=== PATIENT | male | born 1945 | race Hispanic/Latino ===

== ENCOUNTER → 2024-04-08 | Outpatient (CLI) | payer OTHER ==
[2024-04-08 08:37] LABS: ADD UA MICROSCOPIC YES; APPEARANCE,URINE CLOUDY (CLEAR); BILIRUBIN,URINE NEGATIVE (NEGATIVE); COLOR,URINE YELLOW (YELLOW); GLUCOSE, URINE (UA) >=1000 mg/dL (NEGATIVE); KETONES,URINE NEGATIVE (NEGATIVE); LEUKOCYTE ESTERASE ,URINE 500 Leu/uL (NEGATIVE); NITRATE,URINE NEGATIVE (NEGATIVE); PH,URINE 5.5 (5.0-8.0); PROTEIN,URINE 30 mg/dL (NEGATIVE); UROBILINOGEN,URINE 0.2 mg/dL (0.2-1.0)
[2024-04-08 08:42] LABS: BACTERIA,URINE MOD /HPF (None Seen); MUCUS,URINE RARE LPF (None Seen); SQUAMOUS EPITHELIAL CELL,UR RARE /HPF (0-2); UNCLASSIFIED CRYSTAL 2 /HPF (None Seen); WBC CLUMP FEW /HPF (0-1); WBC,URINE TNTC /HPF (0-1)
[2024-04-08 08:46] LABS: ALBUMIN 3.5 g/dL (3.5-5.0); BILIRUBIN,TOTAL 0.4 mg/dL (0.2-1.0); CREATININE 1.3 mg/dL (0.5-1.3); POTASSIUM 4.6 mmol/L (3.5-5.1); TOTAL PROTEIN, SERUM 7.3 g/dL (6.0-8.3)
== END | disposition home or self-care (01) ==
LOC: LAB 07:51
PROVIDERS: ATTEND Chiropractor
DX: N18.9 Chronic kidney disease, unspecified (principal)
CPT/HCPCS: 36415; 80053; 81001; 87077; 87086; 87088; 87186

== ENCOUNTER 2025-06-17 15:27 | Inpatient (IN) | payer OTHER ==
[~2025-06-17] VITALS: Ht 177.8 cm; Wt 94.5 kg
--- NOTE | 2025-06-17 15:42 | EKG ---
[facility] Test Date: 2025-06-17 Test Time: 15:37:13 Pat Name: SHELBY MONTES Department: ED Room: 218 Gender: M [employer] Hat[employer] Worker: [id number] : 1945 Requested By: JERRY ADAME Order Number: [id number] Reading MD: Zoë Oneal Measurements Intervals [place] Rate: 65 P: 5 DE: 140 QRS: 23 QRSD: 85 T: 58 QT: 391 QTc: 407 Interpretive Statements Sinus rhythm Low voltage, precordial leads No previous ECG available for comparison Electronically Signed On 06-18-2025 08:34:45 CDT by Zoë Oneal Please click the below link to view image of tracing.
[2025-06-17 15:50] LABS: IMMATURE GRANULOCYTE ABSOLUTE 0.02 K/uL (0-1); NUCLEATED RED BLOOD CELLS 0.0 % (0.0-0.19); PLATELET COUNT (AUTO) 243 K/uL (130-400); RED BLOOD CELL COUNT(AUTO) 5.14 MIL/uL (4.50-6.20); RED CELL DISTRIBUTION WIDTH 15.3 % (11.0-15.5); WHITE BLOOD COUNT (AUTO) 9.7 K/uL (4.8-10.8)
[2025-06-17 15:59] LABS: CREATININE 1.4 mg/dL (0.5-1.3); GLOMERULAR FILTR. RATE CALC 51.0 mL/min (>90); GLUCOSE,RANDOM 142.0 mg/dL (70-105); SODIUM SERUM 136.0 mmol/L (136-145); UREA NITROGEN, BLOOD 24.0 mg/dL (7-18)
[2025-06-17 16:01] LABS: INR 1.09 (0.85-1.15)
[2025-06-17 16:09] LABS: CREATINE KINASE, TOTAL 128.0 U/L (21-232); LDL DIRECT 59.0 mg/dL (0-99)
--- NOTE | 2025-06-17 17:00 | HMCIMG ---
EXAM: CT Head Without Intravenous Contrast. CLINICAL HISTORY: 79-year-old male with right eye peripheral vision decreased. TECHNIQUE: Axial computed tomography images of the head/brain without intravenous contrast. Dose reduction technique was used including one or more of the following: automated exposure control, adjustment of mA and kV according to patient size, and/or iterative reconstruction. CONTRAST: NONE COMPARISON: None. FINDINGS: BRAIN: Moderate atrophy. Moderate chronic ischemic changes. There is increased density in the left occipital lobe, image number 15 of 31, with some surrounding low density, possibly representing a hemorrhagic infarct, and subarachnoid hemorrhage cannot be excluded within this area. VENTRICLES: No hydrocephalus. ORBITS: The orbits are unremarkable. SINUSES AND MASTOIDS: The paranasal sinuses and mastoid air cells are clear. SOFT TISSUES: No significant facial or scalp soft tissue swelling evident. No radiopaque foreign body is seen. BONES: No acute skull fracture. IMPRESSION: 1. Possible hemorrhagic infarct in the left occipital lobe with surrounding low density. Subarachnoid hemorrhage cannot be excluded within this area. 2. Moderate atrophy and moderate chronic ischemic changes. /[place]
--- NOTE | 2025-06-17 17:08 | ERN ---
General Chief Complaint: Stroke Symptoms Stated Complaint: STROKE LIKE SYMPTOMS Time Seen by MD: 15:29 Source: patient History of Present Illness Initial Comments Patient is a an 79-year-old male coming in complaining of right eye issues. Per patient he was seen by his PCP sent over for further evaluation. Patient states that a couple of days ago he started noticing decreased vision loss for in the right lateral field. Allergies: Coded Allergies: No Known Drug Allergies (Unverified Allergy, Unknown, 06/17/25) Past Medical History Past Medical History: Diabetes-Type II, High Cholesterol, Hypertension, Other Medical History Other: BPH, NEUROPATHY, CKD NOT ON DIALYSIS Past Surgical History: Other Surgical History Other: CATARACS, HERNIA ROS Dictation CONSTITUTIONAL: No chills, no fever, no weakness, no diaphoresis, no malaise. HEAD/FACE: No signs of trauma. EENT: No eye pain, blurred vision, no tearing, no double vision, no ear pain, no ear discharge, no nose pain, no nasal congestion, no throat pain, no throat swelling, no mouth pain. RESPIRATORY: No cough, no orthopnea, no SOB, no stridor, no wheezing. CARDIOVASCULAR: No chest pain, no edema, no palpitations, no syncope. GASTROINTESTINAL/ABDOMINAL: No abdominal pain, no constipation, no diarrhea, no nausea, no vomiting. GENITOURINARY: No abnormal discharge, no dysuria, no frequent urination, no hematuria. No complaints of pain in the genitals. MUSCULOSKELETAL: No back pain, no gout, no joint pain, no joint swelling, no muscle pain, no muscle stiffness, no neck pain. INTEGUMENTARY: No change in color, no change in hair/nails, no dryness, no lesion, no lumps, no rash. NEUROLOGICAL/PSYCH: No anxiety, not depressed, no emotional problem, no headache, no numbness, no pre-existing deficit, no history of seizures, no tremors, no weakness. HEMATOLOGIC/LYMPHATIC: Not anemic, no history of blood clots, no apparent bleeding, no bruising, glands not swollen. All Systems Negative, Except as Noted. Physical Exam Physical Exam Dictation VITAL SIGNS: Reviewed. GENERAL APPEARANCE: Alert, oriented x3, no acute distress, obese. HEAD AND FACE: Non-traumatic. EYES: PERRL, pink conjunctivas, eyelid no trauma, anterior chamber clear. R ight eye peripheral vision loss EARS: Pinnas intact and no signs of trauma or erythema. Ear canals clear and no discharge. TMs no erythema. NOSE: No discharge, no bleeding. OROPHARYNX: Mouth normal, teeth no caries, tongue pink. Pharynx clear, no er ythema. Tonsils no exudates, no abscesses noted. Mucous membrane moist. NECK: Supple, non-tender, no thyromegaly, no masses, no JVD, no bruits. BREAST: Deferred. CHEST: No tenderness, no crepitus, no paradoxical movement, no retractions. LUNGS: Clear, well-ventilated, symmetric, no rales, no wheezing, no rhonchi, no stridor, good breath sounds bilaterally. HEART: Regular rate, regular rhythm, no murmur, no gallops. VASCULAR: No peripheral edema. ABDOMEN: Soft, positive bowel sounds, nondistended, no guarding, nontender, no rebound, no masses no hepatomegaly, no splenomegaly, no Ford's sign, no hernias. RECTAL: Deferred. GENITAL: Deferred. NEUROLOGICAL: Normal speech, gross motor function intact, gross sensory function intact. MUSCULOSKELETAL: Neck nontender, full range of motion, back nontender, full range of motion. EXTREMITIES: Nontender, full range of motion. SKIN: Color pink, dry, no turgor, no rash, no lacerations, no abrasions, no contusions. LYMPHATICS: Deferred. Results Laboratory and Microbiology Lab and Micro Result Laboratory Tests Test 06/17/25 15:40 White Blood Count 9.7 K/uL (4.8-10.8) Red Blood Count 5.14 MIL/uL (4.50-6.20) Hemoglobin 14.8 g/dL (14.0-18.0) Hematocrit 46.2 % (42-54) Mean Corpuscular Volume 89.9 fL (79-99) Mean Corpuscular Hemoglobin 28.8 pg (27.0-33.0) Mean Corpuscular Hemoglobin Concent 32.0 g/dL (32.0-36.0) Red Cell Distribution Width 15.3 % (11.0-15.5) Platelet Count 243 K/uL (130-400) Mean Platelet Volume 9.5 fL (7.5-10.5) Immature Granulocyte % (Auto) 0.2 % (0-1) Neutrophils (%) (Auto) 68.3 % (40.0-77.0) Lymphocytes (%) (Auto) 19.2 % (21.0-51.0) L Monocytes (%) (Auto) 7.5 % (3.0-13.0) Eosinophils (%) (Auto) 3.8 % (0.0-8.0) Basophils (%) (Auto) 1.0 % (0.0-5.0) Neutrophils # (Auto) 6.6 K/uL (1.8-7.7) Lymphocytes # (Auto) 1.9 K/uL (1.0-4.8) Monocytes # (Auto) 0.7 K/uL (0.1-1.0) Eosinophils # (Auto) 0.37 K/uL (0.00-0.70) Basophils # (Auto) 0.10 K/uL (0.00-0.20) Absolute Immature Granulocyte (auto 0.02 K/uL (0-1) Nucleated Red Blood Cells 0.0 % (0.0-0.19) Prothrombin Time 11.5 SEC (9.6-11.6) Prothromb Time International Ratio 1.09 (0.85-1.15) Activated Partial Thromboplast Time 30.5 SEC (26.3-35.5) Sodium Level 136 mmol/L (136-145) Potassium Level 4.6 mmol/L (3.5-5.1) Chloride Level 102 mmol/L (101-111) Carbon Dioxide Level 28 mmol/L (21-32) Blood Urea Nitrogen 24 mg/dL (7-18) H Creatinine 1.4 mg/dL (0.5-1.3) H Glomerular Filtration Rate Calc 51 mL/min (>90) Random Glucose 142 mg/dL (70-105) H Total Calcium 9.2 mg/dL (8.5-10.1) Total Creatine Kinase 128 U/L (21-232) Troponin I High Sensitivity 26 ng/L (4-75) LDL Cholesterol 59 mg/dL (0-99) Labs Reviewed?: Yes EKG/XRAY/US/CT/MRI EKG Comment 06/17/2025 time 3:37 p.m. Ventricular rate 65 Sinus rhythm [place] 140 no wave elevation or depression CT Scan Comment [facility] [address] [place] [address] IMAGING REPORT Signed PATIENT: SHELBY MONTES MR#: [id number] : 1945 SEX: M AGE: 79 LOCATION: [facility] ORDER 153 STATUS: [facility] ER REPORT#: [id number] SERVICE 153 REASON: right eye peripheral vision decreased ORDERING PHYSICIAN: JERRY ADAME MD PROCEDURE: HEAD WO - CT HEAD/BRAIN W/O CONTRAST EXAM: CT Head Without Intravenous Contrast. CLINICAL HISTORY: 79-year-old male with right eye peripheral vision decreased. TECHNIQUE: Axial computed tomography images of the head/brain without intravenous contrast. Dose reduction technique was used including one or more of the following: automated exposure control, adjustment of mA and kV according to patient size, and/or iterative reconstruction. CONTRAST: NONE COMPARISON: None. FINDINGS: BRAIN: Moderate atrophy. Moderate chronic ischemic changes. There is increased density in the left occipital lobe, image number 15 of 31, with some surrounding low density, possibly representing a hemorrhagic infarct, and subarachnoid hemorrhage cannot be excluded within this area. VENTRICLES: No hydrocephalus. ORBITS: The orbits are unremarkable. SINUSES AND MASTOIDS: The paranasal sinuses and mastoid air cells are clear. SOFT TISSUES: No significant facial or scalp soft tissue swelling evident. No radiopaque foreign body is seen. BONES: No acute skull fracture. IMPRESSION: 1. Possible hemorrhagic infarct in the left occipital lobe with surrounding low density. Subarachnoid hemorrhage cannot be excluded within this area. 2. Moderate atrophy and moderate chronic ischemic changes. /[place] DICTATED BY: CARMENCITA SOSA MD DATE: 06/17/251799 ELECTRONICALLY SIGNED BY: CARMENCITA SOSA MD DATE: 06/17/251799 [facility] MDM: Differential diagnosis: Hemorrhagic stroke, subarachnoid hemorrhage Rationale: Tests considered and ordered secondary to shared decision making include: labs, ECG and radiology Previous outside records reviewed: Old ER visits. Risk of complication and/or morbidity or mortality of patient management: None Medications-Per medication reconciliation Need for hospitalization: Patient does meet criteria for hospitalization. Need for emergency major/minor surgery: No There are no social concerns with this patient. Prescription drug management Prescriptions will include symptomatic care Patient's prior external medical records from other ER visits were reviewed by me as indicated. Prior testing and results from previous visits were reviewed. Prior tests were taken into account with medical decision making and resource utilization, independent historian/historians were used to obtain complete medical history. I independently interpreted the test that were performed, results were reviewed by me and considered findings on radiology if ordered. Medical management and examination interpretation discussions were had by me with other qualified healthcare professionals as indicated for the patient's care. Patient's findings discussed with Dr. Ahuja neurosurgeon on-call per his recommendation patient is stable from neurosurgical standpoint, patient will be admitted under the care of hospitalist group for ongoing management. ED Course Orders Procedure Category Date Status Time Cbc With Differential LAB 06/17/25 Complete 15:33 Prothrombin Time With LAB 06/17/25 Complete INR 15:33 Partial LAB 06/17/25 Complete Thromboplastin Time 15:33 Ct Head/Brain W/O CT 06/17/25 Resulted Contrast 15:33 12 Lead Ekg Tracing- EKG 06/17/25 Complete Technical 15:33 Creatine Kinase, Total LAB 06/17/25 Complete 15:33 Ldl Direct LAB 06/17/25 Complete 15:33 Troponin I High LAB 06/17/25 Complete Sensitivity 15:33 Urinalysis Profile LAB 06/17/25 Logged 15:33 Bedside Glucose CPOE 06/17/25 Transmitted Fingerstick 15:33 Basic Metabolic Panel LAB 06/17/25 Complete 15:33 Vital Signs Date Time Temp Pulse Resp B/P (MAP) Pulse Ox O2 Delivery O2 Flow Rate FiO2 06/17/25 15:30 98.1 73 16 142/64 99 Room Air 0 Critical Care Note Comments Critical Care Procedure Note Authorized and Performed by: me Total critical care time: Approximately 36 minutes Due to a high probability of clinically significant, life threatening deter ioration, the patient required my highest level of preparedness to intervene emergently and I personally spent this critical care time directly and personally managing the patient. This critical care time included obtaining a history; examining the patient; pulse oximetry; ordering and review of studies; arranging urgent treatment with development of a management plan; evaluation of patient's response to treatment; frequent reassessment; and, discussions with other providers. This critical care time was performed to assess and manage the high probability of imminent, life-threatening deterioration that could result in multi-organ fa ilure. It was exclusive of separately billable procedures and treating other patients and teaching time. Please see MDM section and the rest of the note for further information on patient assessment and treatment. 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
--- NOTE | 2025-06-17 17:45 | NUR ---
PLACED 20G ON LEFT ANTECUBITAL; SALINE LOCK.
--- NOTE | 2025-06-17 17:45 | NUR ---
ASSUMED PATIENTS CARE.
--- NOTE | 2025-06-17 18:00 | NUR ---
NIH SCORE 1.
--- NOTE | 2025-06-17 18:24 | HP ---
History of Present Illness Reason for Visit: visual changes History of Present Illness Mr. Taveras is an 79 year old male that was seen and examined today on 06/17/25. Patient complains of vision loss to right eye. Onset was 06/12/2025. Location is right eye peripheral vision. Duration is constant. Character is described as, "everybody looks like a ghost on that side of my. "There was no alleviating factors. There was no aggravating factors. Patient denies any associated chest pain or shortness and breath. Today in the emergency department CBC unremarkable, creatinine 1.4, BUN 24, CT of head shows possible hemorrhagic infarct left occipital area. Emergency room physician spoke with the neurosurgeon on-call, Dr. Brooks recommended patient be admitted to the hospital and also followed by Neurology Service. Past Medical History ADDITIONAL PAST MEDICAL HISTORY: [Diabetes mellitius type2, hypertension, hyperlipidemia, CKD] SOCIAL HISTORY: [Negative for smoking, alcohol use, drug use. Patient lives with hisel ,via jason. Patient is typically independent of his ADLs. Patient denies difficulty pain is bills.] SURGICAL HISTORY: [Cataract surgery, hernia repair, appendectomy] Review of Systems General: No Fever, No Chills, No Night Sweats, No Fatigue, No Malaise, No Appetite, No Other HEENT: No Head Aches, No Visual Changes, No Eye Pain, No Ear Pain, No Dysphasia, No Sinus Congestion, No Post Nasal Drip, No Sore Throat, No Other Pulmonary: No Dyspnea, No Cough, No Pleuritic Chest Pain, No Other Cardiovascular: No: Chest Pain, Palpitations, Orthopnea, Paroxysmal Noc. Dyspnea, Edema, Lt Headedness, Other Gastrointestinal: No: Nausea, Vomiting, Abdominal Pain, Diarrhea, Constipation, Melena, Hematochezia, Other Genitourinary: No Dysuria, No Frequency, No Incontinence, No Hematuria, No Retention, No Other Musculoskeletal: No: other, neck pain, shoulder pain, arm pain, back pain, hand pain, leg pain, foot pain Skin: No Urticaria, No Rash, No Other Neurological: Other (Visual disturbances); No: Weakness, Numbness, Incoordination, Change in speech, Confusion, Seizures Allergies: Coded Allergies: No Known Drug Allergies (Unverified Allergy, Unknown, 06/17/25) Scheduled Amlodipine Besylate (Amlodipine Besylate), 1 TAB PO DAILY, (Reported) Aspirin (Aspirin), 1 TAB PO DAILY, (Reported) Empagliflozin (Jardiance), 1 TAB PO DAILY, (Reported) Finerenone (Kerendia), 1 TAB PO DAILY, (Reported) Glipizide (Glipizide), 1 TAB PO BID, (Reported) Lisinopril (Lisinopril), 1 TAB PO DAILY, (Reported) Rosuvastatin Calcium (Rosuvastatin Calcium), 1 TAB PO HS, (Reported) Semaglutide (Ozempic), 1 MG SQ QWEEK, (Reported) Tamsulosin HCl (Flomax), 0.4 MG PO HS, (Reported) Exam Vital Signs Vital Signs Date Time Temp Pulse Resp B/P (MAP) Pulse Ox O2 Delivery O2 Flow Rate FiO2 06/17/25 15:30 98.1 73 16 142/64 99 Room Air 0 General Appearance: Alert, Oriented X3, Cooperative, No acute distress HEENT: Atraumatic, EOMI Respiratory: Clear to auscultation, Normal air movement, NL respiratory effort Cardiovascular: Regular rate, Regular rhythm, Normal S1, Normal S2 Abdominal: Normal bowel sounds, Soft, No tenderness Extremities: No edema Skin: No significant lesion Neuro: Normal gait, Normal speech, Strength at 5/5 X4 ext, Sensation intact, Cranial nerves 3-12 NL Psych/Mental Status: Mental status NL, Mood NL, Thoughts/Content NL Assessment/Plan ASSESSMENT: [ Left occipital hemorrhagic infarct, POA CKD stage IIIA, POA Urinary tract infection, POA Diabetes mellitius type2 Hypertension Hyperlipidemia] PLAN: [ Admit patient to intensive care unit as inpatient status. Place patient on telemetry monitoring. Patient will be followed by critical care service. Left occipital hemorrhagic infarct: Fall precautions Bed rest Keep head of bed elevated 30 Patient will be followed by Neurosurgery service, Dr. Brooks who was consulted from the emergency department. Patient will be followed by Neurology Service, Dr. He. Further diagnostic imaging with MRI per Neurology/Neurosurgery recommendations Keep patient NPO. Judicious IV fluid use Keppra 1000 mg IV times 1 Keppra 500 mg IV every 8 hours Discontinue patient's home dose of aspirin CKD stage IIIB: Avoid nephrotoxic agents when possible. Renally dose all medications when possible. Intake and output every shift Weight patient daily IV fluid maintenance therapy lactated Ringer's at 50 mL/HR Urinary tract infection: Check urine culture, follow up with the results. Empiric antibiotic therapy with Rocephin. Diabetes mellitus type 2: Check hemoglobin A1c in a.m. Glucometer checks a.c. and HS 1800 ADA diet once recommended by neurology/neurosurgery service Humulin R sliding scale Hypertension, hyperlipidemia: Consider resuming home medications once they have been reconciled. At time of admission home medications not been reconciled. For now: Hydralazine 10 mg IV every 4 hours for systolic blood pressure greater than 160 mmHg Atorvastatin 40 mg by mouth once daily. GI prophylaxis, Protonix DVT prophylaxis, avoid anticoagulation during this hospitalization. Place patient on Osbaldo's and SCDs. Critical Care Time: I spent ___51___ minutes of critical care time with the patient. I reviewed lab work, change the patient's medication, and coordinated protocol in the event of tachycardia or desaturation. The patient status remains unchanged ADVANCED CARE PLANNING 1. Which of the following were discussed? Hospice Care - Yes Therapeutic options - yes Advance Directives - Yes - patient states he does not have any advance directives in place at this time, however his can make decisions for him if he becomes unable. Other discussions - patient wishes to remain a full code at this time 2. Discussed with who? Patient 3. Voluntary nature of this service was explained to the patient? Yes 4. Amount of time spent - ___16 minutes____ 5. Reviewed by Physician? (if this service was performed by NPP) Yes This document was generated in part using voice recognition software, occasional wrong word or sound alike substitutions may have occurred due to the inherent limitations of voice recognition software. Read the chart carefully and recognize using context, where the substitutions have occurred. Although every effort was made to edit the content, service desk agent and typing errors may occur ATTESTATION BY PHYSICIAN I have seen and examined the patient. I reviewed the documentation, medical decision making, and treatment plan as noted by the mid-level provider above. I agree with the findings and plan of care.] LACY PRITC[facility] Jun 17, 2025 18:24
[2025-06-17 18:40] LABS: APPEARANCE,URINE CLEAR (CLEAR); GLUCOSE, URINE (UA) >=1000 mg/dL (NEGATIVE); LEUKOCYTE ESTERASE ,URINE 75 Leu/uL (NEGATIVE); NITRATE,URINE NEGATIVE (NEGATIVE); OCCULT BLOOD,URINE NEGATIVE (NEGATIVE)
[2025-06-17 18:42] LABS: ADD UA MICROSCOPIC YES
--- NOTE | 2025-06-17 18:52 | NUR ---
SPOKE WITH MRS. DELGADILLO [employer] COLLECTOR FOR CRITICAL CARE TEAM; NOTIFY HER OF NEW CONSULT.
[2025-06-17 18:57] LABS: SQUAMOUS EPITHELIAL CELL,UR RARE /HPF (0-2)
[2025-06-17] MEDS ORDERED: TAMS-55 PO (19:04)
[2025-06-17] MEDS ORDERED: FINE10TA PO (19:04)
[2025-06-17] MEDS ORDERED: GLIP10TA16 PO (19:04)
[2025-06-17] MEDS ORDERED: LISI40TA15 PO (19:04)
[2025-06-17] MEDS ORDERED: SEMA1PEN3 SQ (19:04)
[2025-06-17] MEDS ORDERED: AMLO-257 PO (19:04)
[2025-06-17] MEDS ORDERED: ASPI-1197 PO (19:04)
[2025-06-17] MEDS ORDERED: EMPA25TA PO (19:04)
[2025-06-17] MEDS ORDERED: ROSU5TAB51 PO (19:04)
--- NOTE | 2025-06-17 19:04 | NUR ---
HOME MEDICATIONS IN SYSTEM; PENDING TO BE RECONSILED BY ADMITTING PHYSICIAN.
[2025-06-17] MEDS: leveTIRACEtam 500 MG/5 ML SD V 1,000 MG in 0.9%NACL 100ML 100 ML IV ONE (20:47)
[2025-06-17] MEDS: LACTATED RINGERS 1000ML 1,000 ML IV SCH (20:49)
--- NOTE | 2025-06-17 21:24 | NUR ---
BLOOD GLUCOSE 134. NO INSULIN COVERAGE NEEDED AT THIS TIME.
[2025-06-18] VITALS (57 sets, daily range): BP systolic 76–141; BP diastolic 29–72; PULSE 54–86; RESP 10–19; TEMP 97.5–98; O2SAT 95–99
--- NOTE | 2025-06-18 00:53 | NUR ---
CALLED FOR REPORT, MR. MARYCRUZ HERRING STATED THAT HE WILL CALL ME BACK.
--- NOTE | 2025-06-18 01:10 | NUR ---
MARYCRUZ CALLED FOR REPORT. DISCUSSED PATIENTS LABS, IMAGING, HOME MEDICATIONS AND PENDING CONSULTS.
[2025-06-18] MEDS: leveTIRACEtam 500 MG/5 ML SD V 500 MG in 0.9%NACL 100ML 100 ML IV SCH (04:45)
[2025-06-18 05:02] LABS: IMMATURE GRANULOCYTE ABSOLUTE 0.03 K/uL (0-1); NUCLEATED RED BLOOD CELLS 0.0 % (0.0-0.19); PLATELET COUNT (AUTO) 236 K/uL (130-400); RED BLOOD CELL COUNT(AUTO) 4.99 MIL/uL (4.50-6.20); RED CELL DISTRIBUTION WIDTH 15.2 % (11.0-15.5); WHITE BLOOD COUNT (AUTO) 10.5 K/uL (4.8-10.8)
[2025-06-18 05:20] LABS: CREATININE 1.3 mg/dL (0.5-1.3); GLOMERULAR FILTR. RATE CALC 56.0 mL/min (>90); GLUCOSE,RANDOM 96.0 mg/dL (70-105); PHOSPHORUS 3.4 mg/dL (2.5-4.9); SODIUM SERUM 138.0 mmol/L (136-145); UREA NITROGEN, BLOOD 22.0 mg/dL (7-18)
[2025-06-18 05:29] LABS: INR 1.15 (0.85-1.15)
--- NOTE | 2025-06-18 07:44 | NUR ---
DR SANCHEZ CONSULT PLACED CALL TO DR SANCHEZ REGARDING CONSULT, BUT THERE WAS NO ANSWER. LEFT MESSAGE FOR TO PLEASE CALL ME BACK & WILL BE AWAITING REPLY. Addendum: 06/18/25 at 1005 by PELON LIEBERMAN RN RN 0852 AM RECEIVED CALL BACK FROM DR SANCHEZ. WAS MADE AWARE OF CONSULT & PATIENT CURRENT CONDITION. RECEIVED ORDERS FOR AN MRI. WAS MADE AWARE OF PT BEING CLAUSTROPHOBIC & WILL REQUIRE PRE-MEDICATION FOR MRI. AIYANA WAS AT PATIENT'S BEDSIDE & WAS MADE AWARE OF ORDERS FOR MRI FROM DR SANCHEZ WELL PRE-MEDICATION ORDERS FOR ATIVAN. AIYANA SAID SHE WOULD PUT IN ORDERS. Addendum: 06/18/25 at 1007 by PELON LIEBERMAN RN RN 0900 AM \FURTHER ORDERS RECEIVED FROM DR SANCHEZ: IF MRI IS POSITIVE FOR HEMORRHAGE, PLACED CONSULT FOR DR SANCHEZ. IF NEGATIVE, NO NEED FOR CONSULT. Addendum: 06/18/25 at 1515 by PELON LIEBERMAN RN RN [address] SANCHEZ WAS MADE AWARE OF MRI RESULTS BEING POSITIVE FOR AN ACUTE HEMORRHAGIC LEFT OCCIPITAL LOBE INFARCT. NO TELEPHONE ORDERS RECEIVED AT THIS TIME.
[2025-06-18] MEDS ORDERED: FAMOTIDINE 20MG VIAL IV SCH (09:00)
--- NOTE | 2025-06-18 09:06 | CONS ---
[facility] CONSULTATION NOTE Date Patient Seen: Jun 18, 2025 Time of Visit: 08:42 Supervising Physician: Rickey Jeter MD Reason for Consultation: [CCM-left occipital hemorrhagic infarct Primary Care Physician: self referral Outpatient Specialists: Inpatient Consults: Dr Santo, Dr Brooks, Dr Gutierrez, Dr Streeter Admitting: Armando Mercado MD PROBLEM LIST: Acute hemorrhagic left occipital lobe infarct POA Rt eye Loss of peripheral vision CKD stage IIIA, POA Acute Cystitis, POA Hyperglycemia in the presence of T2DM POA A1C 7.7 Essential Hypertension Hyperlipidemia Obesity BMI 30.2 Claustrophobia HPI: This is a 79 Yr old male with a past medical Hx of HTN, T2DM, HLD, CKD and peripheral neuropathy who presented to [facility] on 06/17/25 after approximately 5 days of loss of peripheral vision to rt eye. As per pt he presented to PCP on Monday and was referred to licensed massage therapist. At the licensed massage therapist pt reports he was examined and there was concerns of Acute stroke and was sent to hospital. Pt denies headache, nause, vomiting, focal weakness or seizure like activity but does report and rt eye peripheral vision loss. CT of the brain shows- Possible hemorrhagic infarct in the left occipital lobe with surrounding low density. Subarachnoid hemorrhage cannot be excluded within this area. He was admitted to the ICU by [facility] team and we were consulted for critical care management. On assessment Pt had no focal weakness. He reports chronic neuropathy. Main concern is loss of vision to peripheral on rt eye. Patient is hemodynamically stable with a blood pressure 131/59 heart rate in the 80s respiratory rate of 18 saturating 96% on room air and afebrile. Urinalysis positive for protein of 10 glucose of greater than 1000 leukocyte esterase of 75 WBCs of 11 to 25. Chemistries shows BUN 22 hemoglobin A1c of 7.7 estimated average glucose 174 mg/dL. CBC unremarkable. Coags normal. Pending urine culture. PAST MEDICAL HX: see above PAST SURGICAL HX: noncontributory SOCIAL HISTORY: No tobacco, ETOH, or illicit drug use Coded Allergies: No Known Drug Allergies (Unverified Allergy, Unknown, 06/17/25) REVIEW OF SYSTEMS: Const: no fever, fatigue, or weight changes Eyes:+ RT eye peripheral vision loss ENT: No congestion, ear pain, or sore throat C/V: no chest pain, palpitations or edema Resp: No cough, congestion, wheezing , or Shortness of breath GI: No abdominal pain, nausea, vomiting, constipation, or diarrhea : No incontinence of or dyuria M/S: No joint or pain swelling Skin: No rash Neuro: no headache, focal numbness, or weakness, dizziness or seizures Psych: no depression or anxiety Heme: no abnormal bruising or bleeding Lymph: no swollen glands PHYSICAL EXAM: GENERAL: alert, weak, awake oriented x 3 HEENT: EOMI, Sclera non icteric, moist mucosa NECK: Supple, no JVD, trachea midline LUNGS: Clear breath sounds bilaterally. No wheezes HEART: Regular rate and rhythm. Normal S1 and S2, without murmurs ABD: Abdomen soft, nontender. Bowel sounds present EXT: No clubbing cyanosis or edema NEURO: Alert and oriented to person, follows commands NIH stroke scale : 1A: Level of consciousness: 0] 1B: Ask months and age: [0 1C: Blinks eyes and squeezes hand: 0 2: Horizontal extraocular movements: 1 3. : Visual tellez: 1 4.: Facial palsy: 0 5A: Left arm motor drift: 0 5 B: Right arm motor drift: 0 6A: Left leg motor drift: 0 6 B: Right leg motor drift: 0 7.: Limb ataxia: 0 8.: Sensation: 0 9.: Language aphasia: 0 10.: Dysarthria 0 11.: Extension/inattention:0 Score of 2 Vital Signs (last 8hr) Date Time Temp Pulse Resp B/P (MAP) Pulse Ox O2 Delivery O2 Flow Rate FiO2 06/18/25 06:15 56 11 101/44 95 06/18/25 06:00 61 11 96/35 94 Room Air 06/18/25 05:45 61 11 76/35 99 06/18/25 05:30 61 12 112/52 96 06/18/25 05:15 61 11 115/49 90 06/18/25 05:00 55 13 113/62 96 Room Air 06/18/25 04:41 60 12 123/58 97 Room Air 06/18/25 04:30 60 12 111/44 96 Room Air 06/18/25 04:15 96 Room Air* 0 21 06/18/25 04:00 58 12 111/42 96 Room Air 06/18/25 03:45 57 12 118/41 96 06/18/25 03:30 59 12 111/48 95 06/18/25 03:15 59 13 99/55 94 06/18/25 03:00 98.1 58 15 109/45 95 Room Air 21 06/18/25 02:45 59 13 111/38 96 06/18/25 02:30 64 13 131/58 97 06/18/25 02:15 62 18 137/46 98 06/18/25 02:00 98.1 64 16 134/63 98 Room Air 21 06/18/25 02:00 99 Room Air* 0 21 06/18/25 01:56 64 16 134/63 98 06/18/25 01:54 64 15 139/68 98 Room Air 21 LABS: Hematology Labs: Test 06/18/25 04:45 Range/Units White Blood Count 10.5 4.8-10.8 K/uL Red Blood Count 4.99 4.50-6.20 MIL/uL Hemoglobin 14.3 14.0-18.0 g/dL Hematocrit 43.8 42-54 % Mean Corpuscular Volume 87.8 79-99 fL Mean Corpuscular Hemoglobin 28.7 27.0-33.0 pg Mean Corpuscular Hemoglobin Concent 32.6 32.0-36.0 g/dL Red Cell Distribution Width 15.2 11.0-15.5 % Platelet Count 236 130-400 K/uL Mean Platelet Volume 9.5 7.5-10.5 fL Immature Granulocyte % (Auto) 0.3 0-1 % Neutrophils (%) (Auto) 63.4 40.0-77.0 % Lymphocytes (%) (Auto) 21.9 21.0-51.0 % Monocytes (%) (Auto) 9.9 3.0-13.0 % Eosinophils (%) (Auto) 3.7 0.0-8.0 % Basophils (%) (Auto) 0.8 0.0-5.0 % Neutrophils # (Auto) 6.7 1.8-7.7 K/uL Lymphocytes # (Auto) 2.3 1.0-4.8 K/uL Monocytes # (Auto) 1.0 0.1-1.0 K/uL Eosinophils # (Auto) 0.39 0.00-0.70 K/uL Basophils # (Auto) 0.08 0.00-0.20 K/uL Absolute Immature Granulocyte (auto 0.03 0-1 K/uL Nucleated Red Blood Cells 0.0 0.0-0.19 % Chemistry Labs: Test 06/18/25 04:52 06/18/25 04:45 06/17/25 15:40 Range/Units Whole Blood Glucose 97 70-110 MG/DL Sodium Level 138 136-145 mmol/L Potassium Level 4.1 3.5-5.1 mmol/L Chloride Level 105 101-111 mmol/L Carbon Dioxide Level 27 21-32 mmol/L Blood Urea Nitrogen 22 H 7-18 mg/dL Creatinine 1.3 0.5-1.3 mg/dL Glomerular Filtration Rate Calc 56 >90 mL/min Random Glucose 96 70-105 mg/dL Hemoglobin A1c 7.7 H 4.0-6.0 % Estimated Average Glucose (eAG) 174 H 70-126 mg/dL Total Calcium 9.3 8.5-10.1 mg/dL Phosphorus Level 3.4 2.5-4.9 mg/dL Magnesium Level 2.20 1.80-2.40 mg/dL Total Creatine Kinase 128 21-232 U/L Troponin I High Sensitivity 26 4-75 ng/L LDL Cholesterol 59 0-99 mg/dL Coagulation Labs: Test 06/18/25 04:45 Range/Units Prothrombin Time 12.0 H 9.6-11.6 SEC Prothromb Time International Ratio 1.15 0.85-1.15 Activated Partial Thromboplast Time 31.9 26.3-35.5 SEC DIAGNOSTICS / RADIOLOGY RESULTS: [ ][address] [address] IMAGING REPORT Addendum PATIENT: SHELBY MONTES MR#: [id number] : 1945 SEX: M AGE: 79 LOCATION: ED ORDER 35 STATUS: REG ER REPORT#: [id number] SERVICE 32 REASON: right eye peripheral vision decreased ORDERING PHYSICIAN: JERRY ADAME MD PROCEDURE: HEAD WO - CT HEAD/BRAIN W/O CONTRAST ADDENDUM REPORT ADDENDUM: Findings discussed with Dr. Crystal Barakat at 5:15 PM CDT on 06/17/25 [facility] ADDENDUM: Results were shared by telephone at 18:09 pm on 06/17/[address]Reyna Barakat. /Wiley EXAM: CT Head Without Intravenous Contrast. CLINICAL HISTORY: 79-year-old male with right eye peripheral vision decreased. TECHNIQUE: Axial computed tomography images of the head/brain without intravenous contrast. Dose reduction technique was used including one or more of the following: automated exposure control, adjustment of mA and kV according to patient size, and/or iterative reconstruction. CONTRAST: NONE COMPARISON: None. FINDINGS: BRAIN: Moderate atrophy. Moderate chronic ischemic changes. There is increased density in the left occipital lobe, image number 15 of 31, with some surrounding low density, possibly representing a hemorrhagic infarct, and subarachnoid hemorrhage cannot be excluded within this area. VENTRICLES: No hydrocephalus. ORBITS: The orbits are unremarkable. SINUSES AND MASTOIDS: The paranasal sinuses and mastoid air cells are clear. SOFT TISSUES: No significant facial or scalp soft tissue swelling evident. No radiopaque foreign body is seen. BONES: No acute skull fracture. IMPRESSION: 1. Possible hemorrhagic infarct in the left occipital lobe with surrounding low density. Subarachnoid hemorrhage cannot be excluded within this area. 2. Moderate atrophy and moderate chronic ischemic changes. [facility] DICTATED BY: CARMENCITA SOSA MD DATE: 06/17/251814 ELECTRONICALLY SIGNED BY: DATE: EXAM: CT Head Without Intravenous Contrast. CLINICAL HISTORY: 79-year-old male with right eye peripheral vision decreased. TECHNIQUE: Axial computed tomography images of the head/brain without intravenous contrast. Dose reduction technique was used including one or more of the following: automated exposure control, adjustment of mA and kV according to patient size, and/or iterative reconstruction. CONTRAST: NONE COMPARISON: None. FINDINGS: BRAIN: Moderate atrophy. Moderate chronic ischemic changes. There is increased density in the left occipital lobe, image number 15 of 31, with some surrounding low density, possibly representing a hemorrhagic infarct, and subarachnoid hemorrhage cannot be excluded within this area. VENTRICLES: No hydrocephalus. ORBITS: The orbits are unremarkable. SINUSES AND MASTOIDS: The paranasal sinuses and mastoid air cells are clear. SOFT TISSUES: No significant facial or scalp soft tissue swelling evident. No radiopaque foreign body is seen. BONES: No acute skull fracture. IMPRESSION: 1. Possible hemorrhagic infarct in the left occipital lobe with surrounding low density. Subarachnoid hemorrhage cannot be excluded within this area. 2. Moderate atrophy and moderate chronic ischemic changes. /Wiley DICTATED BY: CARMENCITA SOSA MD DATE: 06/17/251799 ELECTRONICALLY SIGNED BY: CARMENCITA SOSA MD DATE: 06/17/251799 PLAN consult neurology MRI of the brain without contrast cardiac monitoring 2d echo us carotids Consult neurosurgeon avoid hypotension supportive measures to avoid sudden increase in ICP bed rest with HOB elevated maintain o2 sats above 92% Bowel regimen with miralax NEURO: Minimize central acting medications as possible. Fall Precautions. Well lighted room through the day and minimize interruptions through the night to prevent acute delirium. PULMONARY: Supplemental 02 as needed Titrate Fio2 to keep Spo2 > or = 90% DuoNebs and CPT as needed IS hourly while awake for pulmonary hygiene Out of bed to chair as tolerated CARDIOVASCULAR: Follow hemodynamics. Titrate vasopressor to keep MAP >65 or systolic blood pressure >95mmHg DRIPS: none LINES: piv GI & NUTRITION: Continue nutritional support Aspirations precautions Prokinetic agents and laxatives as needed KIDNEYS & ELECTROLYTES: Strict monitoring of intake and output Daily weights Avoid nephrotoxic agents Monitor electrolytes and replace as needed Goal urine output of 30mL/hr or 0.5mL/kg/hr ENDOCRINE: Maintain blood glucose between 100-180 at all times. Insulin sliding scale for blood glucose management INFECTIOUS DISEASE: Trend temperature. Vyas-culture if febrile. Micro: [ ] urine culture- Antibiotics: [ ] Rocephin HEMATOLOGY & COAGULATION: Monitor H&H. Keep Hgb > 7 Transfuse 1 unit of PRBC for Hgb < 7 Transfuse 1 pack of platelets of platelets < 20, 000 Watch for any signs and symptoms of bleeding SKIN: Pressure ulcer prevention per facility protocol Rehab: PT/OT Prophylaxis: GI: Protonix DVT: SCD's no AC due to Intracranial bleed Code Status: Full Resuscitation Disposition: [ PCCU ] Other: Total patient care time exceeds 35 minutes excluding all procedures. Case was discussed and seen with my supervising physician. The above plan was formulated and agreed upon. ATTESTATION BY PHYSICIAN The patient has been seen and evaluated, the case has been discussed with the PEN RULER OPERATOR, I agree with the clinical findings and plan of care. Rickey Jeter MD, [facility] Jun 18, 2025 09:06
--- NOTE | 2025-06-18 10:00 | NUR ---
MRI PLACED CALL TO MRI DEPT TO TRY TO COORDINATE SINCE PATIENT IS CLAUSTROPHOBIC & WILL REQUIRE PRE-MEDICATION. SALES PRODUCT MANAGER SAID THEY WILL ALL ME WHEN THEY ARE READY FOR PATIENT, BUT THEY ARE VERY BUSY OF NOW. Addendum: 06/18/25 at 1237 by PELON LIEBERMAN RN RN 1227 pm RECEIVED CALL FROM SALES PRODUCT MANAGER THAT THEY ARE GOING TO BE CALLING FOR PATIENT PRETTY SOON. WILL PRE-MEDICATE PATIENT AT THIS TIME. Addendum: 06/18/25 at 1326 by PELON LIEBERMAN RN RN 1245 PM ACCOMPANIED PATIENT TO MRI DEPT AT THIS TIME Addendum: 06/18/25 at 1326 by PELON LIEBERMAN RN RN 1323 PM PATIENT BACK FROM MRI AT THIS TIME
--- NOTE | 2025-06-18 14:05 | HMCIMG ---
EXAM: MR Brain without Intravenous Contrast. CLINICAL HISTORY: CVA TECHNIQUE: Multisequence, multiplanar magnetic resonance images acquired of the brain without intravenous contrast. COMPARISON: CT images from June 17, 2025 FINDINGS: BRAIN: No midline shift or extra-axial fluid collection. No cerebellar tonsillar ectopia. No abnormal enhancement. Altered signal intensity area in the left occipital lobe, showing restriction on DWI images, and blooming on SWI images, appear heterogeneous hyperintense on both T1 and T2Wt images, hyperintense on FLAIR. Mild generalized cerebral atrophy. Chronic white matter ischemic changes. VENTRICLES: No hydrocephalus. ORBITS: The orbits are normal. SINUSES AND MASTOIDS: Minimal fluid in the left mastoid air cells. Mild mucosal thickening in all paranasal sinuses BONES: No acute fracture or aggressively appearing osseous lesion. IMPRESSION: 1. Acute hemorrhagic left occipital lobe infarct. Allowing for the limitations of cross modality comparison, the occipital lobe hemorrhage appears relatively unchanged. /Jenison
--- NOTE | 2025-06-18 14:47 | NUR ---
[facility] ICU Skin Assessment: Patient assessed by wound healing team. Patient with no wounds or skin breakdown noted. Assessment and recommendations provided to primary nurse. Education provided. Addendum: 06/18/25 at 1626 by JESSICA BEASLEY RN RN/ Amended: Links added.
--- NOTE | 2025-06-18 15:39 | HMCSR ---
APPROVED REPORT EXAM: Two-dimensional and M-mode echocardiogram with Doppler and color Doppler. INDICATION ICD: Hemorrhagic Stroke in left occipital area 2D Dimensions RVDd3.7 cmLVEF(%)47.5 (>50%)LVED Vol(simp.)99.4 mL IVSd1.1 (0.7-1.1cm)FS(%)23 %LVES Vol(simp.)50.5 mL LVDd3.9 (3.8-5.6cm)LA (2D)4.3 (1.6-4.0cm)LVEF(%, simp.)49 % PWd1.1 (0.7-1.1cm)Ao Root(2D)2.8 (2.0-3.7cm)LA ESV INDEX (BP)35.82 mL/m2 LVDs3.0 (2.5-4.0cm)LVOT diam1.9 (1.8-2.4cm) IVC diam1.6 cm Deformation Strain Apical 4-17.9 % Apical 2-17.1 % Apical 3-18.3 % Global Strain-17.8 % M-Mode Dimensions EPSS1.4 cm LA (MM)4.5 (1.6-4.0cm) Ao Root(MM)2.9 (2.0-3.7cm) Aortic Valve AoV Vmax3.0 m/Dina Peak GR35.6 mmHgLVOT Vmax0.8 m/s AoV VTI0.7 mAo Mean GR20.7 mmHgLVOT VTI0.22 m ANILA (VMAX)0.74 cm2Al P1/7X8529 msAVA (VTI) 0.8 cm2 Mitral Valve MV E Vmax93.5 cm/sDECEL Cgtp633 ms MV A Htwn521.1 cm/sP 1/2 T88 ms E/A ratio0.8MVA (PHT)2.5 cm2 TDI E/E' Rybdqn32.2E/E' Aosshnq87.0 Medial E' Peak V4.88 cm/sLateral E' Peak V5.84 cm/s Pulmonary Valve PV Vmax1.3 m/sPV VTI0.29 mPV Mean GR3.8 mmHg PV Peak GR6.9 mmHg Left Ventricle The left ventricle is normal size. DIFFICULT TO ASSESS WALL MOTION SECONDARY TO SUBOPTIMAL VIEWS OBTA INED There is normal left ventricular wall thickness. LVEF is 45-50%. Cannot rule out left ventricula r apical thrombus. CONSIDER REPEAT STUDY WITH CONTRAST AGENT Stage II diastolic dysfunction. Right Ventricle The right ventricle is normal size. The right ventricular systolic function is normal. Atria The left atrium is mildly dilated. The right atrium size is normal. Aortic Valve The aortic valve is calcified and displays decreased opening. Trace aortic regurgitation. There is mo derate valvular aortic stenosis. Highest mean aortic valve gradient is 25mmHg, highest pk 39gradient. Calculated ANILA 0.9cm2. Mitral Valve Mitral valve leaflets open well. Mitral valve leaflets are mildly calcified. There is no mitral valve regurgitation noted. There is no mitral valve stenosis. Tricuspid Valve The tricuspid valve is normal in structure. There is no tricuspid valve regurgitation noted. Pulmonic Valve The pulmonary valve is normal in structure. There is no pulmonic valvular regurgitation. Great Vessels The aortic root is normal in size. The IVC is normal in size. Pericardium There is no pericardial effusion. Conclusion LVEF is 45-50%. DIFFICULT TO ASSESS WALL MOTION SECONDARY TO SUBOPTIMAL VIEWS OBTAINED Cannot rule out left ventricular apical thrombus. CONSIDER REPEAT STUDY WITH CONTRAST AGENT There is moderate valvular aortic stenosis. Highest mean aortic valve gradient is 25mmHg, highest pk 39gradient. Calculated ANILA 0.9cm2.
--- NOTE | 2025-06-18 15:51 | NUR ---
ECHO RESULTS AIYANA, VIDEO SURVEILLANCE TECHNICIAN MADE AWARE OF ECHO RESULTS WITH QUESTIONABLE LEFT VENTRICULAR APICAL THROMBUS...
--- NOTE | 2025-06-18 16:14 | NUR ---
CARDIOLOGY CONSULT PLACED CALL TO [facility] [phone] TO NOTIFY OF CONSULT FOR MODERATE AORTIC VALVULAR STENOSIS & QUESTIONABLE LEFT VENTRICULAR APICAL THROMBUS, BUT THERE WAS NO ANSWER. [address] NENA DAVIS WAS ROUNDING IN THE UNIT & WAS MADE AWARE OF CONSULT... Addendum: 06/18/25 at 1617 by PELON LIEBERMAN RN RN Amended: Links added. Addendum: 06/18/25 at 1717 by PELON LIEBERMAN RN RN 4 PM RECEIVED VERBAL ORDERS FROM DR NENA DAVIS TO RE-ORDER ECHO TO BE DONE W/ CONTRAST TO RULE OUT LEFT VENTRICULAR APICAL THROMBUS.
--- NOTE | 2025-06-18 16:49 | NUR ---
NEUROSURGEON CONSULT DR ROMERO MADE AWARE OF BOTH CT HEAF & MRI HEAD RESULTS- BOTH SHOWING LT OCCIPITAL LOBE INFARCT / HEMORRHAGE. NO REPLY FROM AT THIS TIME. Addendum: 06/18/25 at 1726 by PELON LIEBERMAN RN RN [address] ROMERO RETURNED THE PHONE CALL. WAS UPDATED ON PATIENT'S CURRENT CONDITION AT THIS TIME.
--- NOTE | 2025-06-18 18:27 | NUR ---
SPEECH THERAPY RALPH AT BEDSIDE TO SEE PATIENT AT THIS TIME.
--- NOTE | 2025-06-18 18:35 | NUR ---
BEDSIDE SWALLOW EVAL COMPLETED. No s/s of aspiration. Recommend regular solids, thin liquids and pills whole with liquids as tolerated. Compensatory strategies: 1. sit upright during oral intake COORDINATOR VOLUNTEER SERVICES reviewed results and recommendations with patient, and nurse Yuridia. COORDINATOR VOLUNTEER SERVICES educated patient on risks and consequences of aspiration. Speech therapy not warranted at this time. All questions answered. Addendum: 06/19/[address] JESSICA JOSEPH Amended: Links added.
--- NOTE | 2025-06-18 18:40 | NUR ---
SPEECH, LANGUAGE, AND COGNITIVE LINGUISTIC EVALUATION COMPLETED. Pt AT BASELINE EVALUATION: Pt AAOX4. Pt EFFECTIVELY EXPRESSED WANTS AND NEEDS WITH CLEAR SPEECH INTELLIGIBILITY. Pt FOLLOWED BASIC 1-2 STEP COMMANDS, ANSWERED SIMPLE WH QUESTIONS, AND RESPONDED APPROPRIATELY TO BASIC YES/NO QUESTIONS. Pt COMPLETED ALL COGNITIVE LINGUISTIC TASKS ACCURATELY AND IN A TIMELY MATTER EXCEPT IN SHORT TERM MEMORY TASKS. Pt WAS GIVEN MINIMAL CUES TO COMPLETE TASKS. PER PATIENT/FAMILY, HE IS FORGETFUL AT TIMES DUE TO HIS AGE. Pt's SPEECH, LANGUAGE, AND COGNITIVE LINGUISTIC SKILLS DEEMED WITHIN FUNCTIONAL LIMITS AND AT BASELINE PRIOR LEVEL OF FUNCTION. SKILLED ST SERVICES NOT WARRANTED AT THIS TIME. ADMINISTRATIVE SUPPORT COORDINATOR REVIEWED RESULTS AND RECOMMENDATIONS WITH PATIENT, AND NURSE MONICA. ALL QUESTIONS ANSWERED AT THIS TIME. Addendum: 06/19/[address] OPAL Amended: Links added.
--- NOTE | 2025-06-18 19:07 | PN ---
[facility] PROGRESS NOTE Date of Service: Jun 18, 2025 Time of Service: 18:29 History of Present Illness Mr. Taveras is an 79 year old male that was seen and examined today on 06/17/25. Patient has a past medical history of type 2 diabetes mellitus, hypertension, hyperlipidemia, CKD stage IIIA presented to the ED with sudden vision loss in the peripheral vision of right eye. He noticed these symptoms on 06/12/2025, was sudden in onset. He denies seizures, headaches, weakness, sensory deficits, balance issues. Patient notes that he has haziness in the right peripheral vision which had stayed constant and has not progressed. He denied having similar symptoms in the past. A CT scan of the head showed possible hemorrhagic infarct in the left occipital area, recommended to perform MRI brain for further characterization. Patient was admitted for possible hemorrhagic stroke. SUBJECTIVE: [ ] 06/18/2025: Patient was evaluated in room 218. Patient was alert oriented and well conversant. NIH stroke scale was 1. Patient did not have motor or sensory deficits. His cranial nerves were intact. MRI of the brain revealed acute hemorrhagic left occipital lobe infarct. 2D echo was performed that showed LVEF of 45-50%, moderate aortic valve stenosis and a possible left ventricular apical thrombus. Dr. Gutierrez recommended repeating 2D echo with contrast to rule out left thrombus. A neurology and neurosurgery consult has been placed. A PT and speech therapy consults have been placed. REVIEW OF SYSTEMS CONSTITUTIONAL: Denies fevers, chills, or night sweats. No unintentional weight loss reported. NEUROLOGICAL: Denies headache, motor weakness, sensory deficit, vertigo/spinning sensation. Reports peripheral vision loss in the right eye. CARDIOVASCULAR: Denies any exertional angina, dyspnea on exertion, orthopnea, paroxysmal nocturnal dyspnea, palpitations PULMONARY: Denies any shortness of breath, cough, phlegm/sputum, hemoptysis, pleuritic chest pain. GASTROINTESTINAL: Denies any type of dysphagia to either liquids or solids. Denies nausea, vomiting, pyrosis, early satiety, abdominal pain, diarrhea, constipation GENITOURINARY: Denies frequency, urgency, nocturia, hematuria or incontinence DERMATOLOGIC: Denies rashes, itching, redness. PHYSICAL EXAM GENERAL APPEARANCE: The patient is awake, alert, and oriented, in no acute ca rdiopulmonary distress. NIH stroke scale 1 NEUROLOGICAL: Cranial nerves II-XII grossly intact. Motor is 5/5 in bilateral upper and lower extremities proximal to distal. No sensory deficits. HEENT: Face is symmetric. Pupils are equal and reactive. Extraocular movements are intact. Partial hemianopia in the right eye NECK: Supple. No JVD. No thyromegaly. No submental, submandibular, pre- /postauricular, occipital or supraclavicular lymphadenopathy. CHEST: Normal chest expansion. No Telemetry. LUNGS: Absence of any rales, rhonchi or any wheezing. CARDIOVASCULAR: Regular. S1 and S2 normal. No appreciable rubs, murmurs or gallops. ABDOMEN: Soft, nontender, and nondistended. There is no rebound, voluntary guarding, or rigidity. : Deferred. No [place]. EXTREMITIES: Non-edematous and not cyanotic. No clubbing. Good capillary refill. SKIN: No skin breakdown. Vital Signs (last 8hr) Date Time Temp Pulse Resp B/P (MAP) Pulse Ox O2 Delivery O2 Flow Rate FiO2 06/18/25 15:00 54 19 119/52 97 Room Air 06/18/25 14:30 58 17 131/63 92 Room Air 06/18/25 14:00 61 16 123/63 95 Room Air 06/18/25 13:30 59 15 123/67 97 Room Air 06/18/25 13:24 54 12 123/60 97 Room Air 06/18/25 12:30 86 18 131/59 96 Room Air 06/18/25 12:00 58 14 122/71 96 Room Air 06/18/25 11:43 95 Room Air* 0 06/18/25 11:30 97.5 56 13 104/48 95 Room Air 06/18/25 11:00 62 10 121/59 99 Room Air 06/18/25 10:30 57 14 108/51 97 Room Air 21 LABS: Laboratory: Test 06/18/25 15:47 06/18/25 04:45 06/17/25 18:20 06/17/25 15:40 Range/Units Whole Blood Glucose 89 70-110 MG/DL White Blood Count 10.5 4.8-10.8 K/uL Red Blood Count 4.99 4.50-6.20 MIL/uL Hemoglobin 14.3 14.0-18.0 g/dL Hematocrit 43.8 42-54 % Mean Corpuscular Volume 87.8 79-99 fL Mean Corpuscular Hemoglobin 28.7 27.0-33.0 pg Mean Corpuscular Hemoglobin Concent 32.6 32.0-36.0 g/dL Red Cell Distribution Width 15.2 11.0-15.5 % Platelet Count 236 130-400 K/uL Mean Platelet Volume 9.5 7.5-10.5 fL Immature Granulocyte % (Auto) 0.3 0-1 % Neutrophils (%) (Auto) 63.4 40.0-77.0 % Lymphocytes (%) (Auto) 21.9 21.0-51.0 % Monocytes (%) (Auto) 9.9 3.0-13.0 % Eosinophils (%) (Auto) 3.7 0.0-8.0 % Basophils (%) (Auto) 0.8 0.0-5.0 % Neutrophils # (Auto) 6.7 1.8-7.7 K/uL Lymphocytes # (Auto) 2.3 1.0-4.8 K/uL Monocytes # (Auto) 1.0 0.1-1.0 K/uL Eosinophils # (Auto) 0.39 0.00-0.70 K/uL Basophils # (Auto) 0.08 0.00-0.20 K/uL Absolute Immature Granulocyte (auto 0.03 0-1 K/uL Nucleated Red Blood Cells 0.0 0.0-0.19 % Prothrombin Time 12.0 H 9.6-11.6 SEC Prothromb Time International Ratio 1.15 0.85-1.15 Activated Partial Thromboplast Time 31.9 26.3-35.5 SEC Sodium Level 138 136-145 mmol/L Potassium Level 4.1 3.5-5.1 mmol/L Chloride Level 105 101-111 mmol/L Carbon Dioxide Level 27 21-32 mmol/L Blood Urea Nitrogen 22 H 7-18 mg/dL Creatinine 1.3 0.5-1.3 mg/dL Glomerular Filtration Rate Calc 56 >90 mL/min Random Glucose 96 70-105 mg/dL Hemoglobin A1c 7.7 H 4.0-6.0 % Estimated Average Glucose (eAG) 174 H 70-126 mg/dL Total Calcium 9.3 8.5-10.1 mg/dL Phosphorus Level 3.4 2.5-4.9 mg/dL Magnesium Level 2.20 1.80-2.40 mg/dL Urine Color LIGHT-YELLOW YELLOW Urine Appearance CLEAR CLEAR Urine pH 5.5 5.0-8.0 Urine Specific [place] 1.017 1.001-1.031 Urine Protein 10 H NEGATIVE mg/dL Urine Glucose (UA) >=1000 H NEGATIVE mg/dL Urine Ketones NEGATIVE NEGATIVE mg/dL Urine Occult Blood NEGATIVE NEGATIVE Urine Nitrate NEGATIVE NEGATIVE Urine Bilirubin NEGATIVE NEGATIVE mg/dL Urine Urobilinogen 0.2 0.2-1.0 mg/dL Urine Leukocyte Esterase 75 H NEGATIVE Terence/uL Urine RBC 2-5 H 0-1 /HPF Urine WBC 11-25 H 0-1 /HPF Urine Squamous Epithelial Cells RARE 0-2 /HPF Urine Bacteria FEW None Seen /HPF Total Creatine Kinase 128 21-232 U/L Troponin I High Sensitivity 26 4-75 ng/L LDL Cholesterol 59 0-99 mg/dL Current Medications Medications (Trade) Dose Ordered Sig/Ra Route PRN Reason Start Time Stop Time Status Last Admin Dose Admin Acetaminophen (TYLenol 325MG TAB) 650 mg Q6H PRN PO TEMPERATURE GREATER THAN 101.5 06/17/25 19:30 07/17/25 19:29 Amlodipine Besylate (NorvASC 5MG TAB) 5 mg DAILY PO 06/19/25 09:00 07/19/25 08:59 Atorvastatin Calcium (LIPItor 40MG) 40 mg HS PO 06/17/25 21:00 07/17/25 20:59 06/17/25 23:51 40 MG Ceftriaxone Sodium (ROCEphine 1G INJ) 1 gm Q24H IVPB 06/17/25 19:30 06/18/25 09:18 DC 06/17/25 20:47 1 GM Diphenhydramine HCl (BENAdryl INJ) 12.5 mg ONCE PRN IV 30 mins before MRI 06/18/25 09:30 07/18/25 09:29 06/18/25 12:28 12.5 MG Famotidine (Pepcid 20mg Vial) 20 mg DAILY IV 06/18/25 09:00 06/17/25 19:26 DC Hydralazine HCl (APRESOLine 20MG INJ) 10 mg Q6H PRN IV For:SBP above 160;DBP above 90 06/17/25 19:30 07/17/25 19:29 Insulin Human Regular (humuLIN R 100 UNIT/ML 3ML) INSULIN SLIDING SCAL... ACHS SQ 06/17/25 21:00 07/17/25 20:59 Lactated Ringer's 1,000 ml @ 50 mls/hr Q20H IV 06/17/25 19:30 07/17/25 19:29 06/18/25 13:30 50 MLS/HR Levetiracetam (kepPRA 500 MG/5 ML SD VIAL) 1,000 mg ONCE IV 06/17/25 19:30 06/17/25 19:31 DC Levetiracetam 500 mg/Sodium Chloride 100 ml @ 400 mls/hr Q12H IV 06/18/25 05:30 06/18/25 09:18 DC 06/18/25 04:45 400 MLS/HR Lisinopril (Prinivil 40mg) 40 mg DAILY PO 06/19/25 09:00 07/19/25 08:59 Lorazepam (AtiVAN) 1 mg ONCE PRN PO 30min before MRI 06/18/25 09:30 06/18/25 12:28 DC 06/18/25 12:28 1 MG Miscellaneous Medication (Rosuvastatin Calcium ) 1 tab HS PO 06/18/25 21:00 06/18/25 09:19 DC Morphine Sulfate (morPHINE 2MG SYG) 2 mg Q4H PRN IVP SEVERE PAIN (7-10) 06/17/25 20:00 06/18/25 09:18 DC Morphine Sulfate (morPHINE 4MG SYG) 2 mg Q4H PRN IVP SEVERE PAIN (7-10) 06/17/25 19:30 06/17/25 19:32 DC Ondansetron HCl (zoFRAN 4MG INJ) 4 mg Q6H PRN IV NAUSEA/VOMITING 06/17/25 19:30 07/17/25 19:29 Pantoprazole Sodium (PROTonix 40MG INJ) 40 mg DAILY IV 06/18/25 09:00 06/17/25 19:34 DC Pantoprazole Sodium (PROTonix 40MG INJ) 40 mg DAILY IV 06/18/25 09:00 07/18/25 08:59 06/18/25 09:09 40 MG Tamsulosin HCl (FloMAX) 0.4 mg HS PO 06/18/25 21:00 07/18/25 20:59 DIAGNOSTICS / RADIOLOGY: [ ] PATIENT: SHELBY TAVERAS MR#: [id number] : 1945 SEX: M AGE: 79 LOCATION: [facility] ORDER 153 STATUS: [facility] REPORT#: [id number] SERVICE 153 REASON: right eye peripheral vision decreased ORDERING PHYSICIAN: JERRY ADAME MD PROCEDURE: HEAD WO - CT HEAD/BRAIN W/O CONTRAST ADDENDUM REPORT ADDENDUM: Findings discussed with Dr. Crystal Barakat at 5:15 PM CDT on 06/17/25 /[place] ADDENDUM: Results were shared by telephone at 18:09 pm on 06/17/[address]Reyna Barakat. /[place] EXAM: CT Head Without Intravenous Contrast. CLINICAL HISTORY: 79-year-old male with right eye peripheral vision decreased. TECHNIQUE: Axial computed tomography images of the head/brain without intravenous contrast. Dose reduction technique was used including one or more of the following: automated exposure control, adjustment of mA and kV according to patient size, and/or iterative reconstruction. CONTRAST: NONE COMPARISON: None. FINDINGS: BRAIN: Moderate atrophy. Moderate chronic ischemic changes. There is increased density in the left occipital lobe, image number 15 of 31, with some surrounding low density, possibly representing a hemorrhagic infarct, and subarachnoid hemorrhage cannot be excluded within this area. VENTRICLES: No hydrocephalus. ORBITS: The orbits are unremarkable. SINUSES AND MASTOIDS: The paranasal sinuses and mastoid air cells are clear. SOFT TISSUES: No significant facial or scalp soft tissue swelling evident. No radiopaque foreign body is seen. BONES: No acute skull fracture. IMPRESSION: 1. Possible hemorrhagic infarct in the left occipital lobe with surrounding low density. Subarachnoid hemorrhage cannot be excluded within this area. 2. Moderate atrophy and moderate chronic ischemic changes. /[place] DICTATED BY: CARMENCITA SOSA MD DATE: 06/17/251814 ELECTRONICALLY SIGNED BY: DATE: EXAM: CT Head Without Intravenous Contrast. CLINICAL HISTORY: 79-year-old male with right eye peripheral vision decreased. TECHNIQUE: Axial computed tomography images of the head/brain without intravenous contrast. Dose reduction technique was used including one or more of the following: automated exposure control, adjustment of mA and kV according to patient size, and/or iterative reconstruction. CONTRAST: NONE COMPARISON: None. FINDINGS: BRAIN: Moderate atrophy. Moderate chronic ischemic changes. There is increased density in the left occipital lobe, image number 15 of 31, with some surrounding low density, possibly representing a hemorrhagic infarct, and subarachnoid hemorrhage cannot be excluded within this area. VENTRICLES: No hydrocephalus. ORBITS: The orbits are unremarkable. SINUSES AND MASTOIDS: The paranasal sinuses and mastoid air cells are clear. SOFT TISSUES: No significant facial or scalp soft tissue swelling evident. No radiopaque foreign body is seen. BONES: No acute skull fracture. IMPRESSION: 1. Possible hemorrhagic infarct in the left occipital lobe with surrounding low density. Subarachnoid hemorrhage cannot be excluded within this area. 2. Moderate atrophy and moderate chronic ischemic changes. /[place] DICTATED BY: CARMENCITA SOSA MD DATE: 06/17/251799 ELECTRONICALLY SIGNED BY: CARMENCITA OSSA MD DATE: 06/17/251799 PATIENT: SHELBY TAVERAS MR#: [id number] : 1945 SEX: M AGE: 79 LOCATION: [facility] ORDER 4 STATUS: ADM IN REPORT#: [id number] SERVICE 3 REASON: CVA ORDERING PHYSICIAN: AIYANA KAUR PROCEDURE: BRAIN WO - MR BRAIN WO CON EXAM: MR Brain without Intravenous Contrast. CLINICAL HISTORY: CVA TECHNIQUE: Multisequence, multiplanar magnetic resonance images acquired of the brain without intravenous contrast. COMPARISON: CT images from June 17, 2025 FINDINGS: BRAIN: No midline shift or extra-axial fluid collection. No cerebellar tonsillar ectopia. No abnormal enhancement. Altered signal intensity area in the left occipital lobe, showing restriction on DWI images, and blooming on SWI images, appear heterogeneous hyperintense on both T1 and T2Wt images, hyperintense on FLAIR. Mild generalized cerebral atrophy. Chronic white matter ischemic changes. VENTRICLES: No hydrocephalus. ORBITS: The orbits are normal. SINUSES AND MASTOIDS: Minimal fluid in the left mastoid air cells. Mild mucosal thickening in all paranasal sinuses BONES: No acute fracture or aggressively appearing osseous lesion. IMPRESSION: 1. Acute hemorrhagic left occipital lobe infarct. Allowing for the limitations of cross modality comparison, the occipital lobe hemorrhage appears relatively unchanged. /[place] DICTATED BY: BONITA PASCAL Jr., MD DATE: 06/18/251503 ELECTRONICALLY SIGNED BY: BONITA PASCAL Jr., MD DATE: 06/18/251503 PATIENT: SHELBY TAVERAS MR#: [id number] : 1945 SEX: M AGE: 79 LOCATION: [facility] ORDER 1342 STATUS: ADM IN REPORT#: [id number] SERVICE 1337 REASON: Hemorrhagic Stroke in left occipital area ORDERING PHYSICIAN: EDDI RICKS MD PROCEDURE: ECHO CMP - ECHO 2-D COMPLETE APPROVED REPORT EXAM: Two-dimensional and M-mode echocardiogram with Doppler and color Doppler. INDICATION ICD: Hemorrhagic Stroke in left occipital area 2D Dimensions RVDd 3.7 cm LVEF(%) 47.5 (>50%) LVED Vol(simp.) 99.4 mL IVSd 1.1 (0.7-1.1cm) FS(%) 23 % LVES Vol(simp.) 50.5 mL LVDd 3.9 (3.8-5.6cm) LA (2D) 4.3 (1.6-4.0cm) LVEF(%, simp.) 49 % PWd 1.1 (0.7-1.1cm) Ao Root(2D) 2.8 (2.0-3.7cm) LA ESV INDEX (BP) 35.82 mL/m2 LVDs 3.0 (2.5-4.0cm) LVOT diam 1.9 (1.8-2.4cm) IVC diam 1.6 cm Deformation Strain Apical 4 -17.9 % Apical 2 -17.1 % Apical 3 -18.3 % Global Strain -17.8 % M-Mode Dimensions EPSS 1.4 cm LA (MM) 4.5 (1.6-4.0cm) Ao Root(MM) 2.9 (2.0-3.7cm) Aortic Valve AoV Vmax 3.0 m/s Ao Peak GR 35.6 mmHg LVOT Vmax 0.8 m/s AoV VTI 0.7 m Ao Mean GR 20.7 mmHg LVOT VTI 0.22 m ANILA (VMAX) 0.74 cm2 Al P1/2T 2486 ms ANILA (VTI) 0.8 cm2 Mitral Valve MV E Vmax 93.5 cm/s DECEL Time 272 ms MV A Vmax 115.1 cm/s P 1/2 T 88 ms E/A ratio 0.8 MVA (PHT) 2.5 cm2 TDI E/E' Medial 19.2 E/E' Lateral 16.0 Medial E' Peak V 4.88 cm/s Lateral E' Peak V 5.84 cm/s Pulmonary Valve PV Vmax 1.3 m/s PV VTI 0.29 m PV Mean GR 3.8 mmHg PV Peak GR 6.9 mmHg Left Ventricle The left ventricle is normal size. DIFFICULT TO ASSESS WALL MOTION SECONDARY TO SUBOPTIMAL VIEWS OBTAINED There is normal left ventricular wall thickness. LVEF is 45-50%. Cannot rule out left ventricular apical thrombus. CONSIDER REPEAT STUDY WITH CONTRAST AGENT Stage II diastolic dysfunction. Right Ventricle The right ventricle is normal size. The right ventricular systolic function is normal. Atria The left atrium is mildly dilated. The right atrium size is normal. Aortic Valve The aortic valve is calcified and displays decreased opening. Trace aortic regurgitation. There is moderate valvular aortic stenosis. Highest mean aortic valve gradient is 25mmHg, highest pk 39gradient. Calculated ANILA 0.9cm2. Mitral Valve Mitral valve leaflets open well. Mitral valve leaflets are mildly calcified. There is no mitral valve regurgitation noted. There is no mitral valve stenosis. Tricuspid Valve The tricuspid valve is normal in structure. There is no tricuspid valve regurgitation noted. Pulmonic Valve The pulmonary valve is normal in structure. There is no pulmonic valvular regurgitation. Great Vessels The aortic root is normal in size. The IVC is normal in size. Pericardium There is no pericardial effusion. Conclusion LVEF is 45-50%. DIFFICULT TO ASSESS WALL MOTION SECONDARY TO SUBOPTIMAL VIEWS OBTAINED Cannot rule out left ventricular apical thrombus. CONSIDER REPEAT STUDY WITH CONTRAST AGENT There is moderate valvular aortic stenosis. Highest mean aortic valve gradient is 25mmHg, highest pk 39gradient. Calculated ANILA 0.9cm2. DICTATED BY: NENA GUTIERREZ MD DATE: 06/18/25 1455 ELECTRONICALLY SIGNED BY: NENA GUTIERREZ MD DATE: 06/18/25 6838 ASSESSMENT: Left occipital hemorrhagic infarct, POA CKD stage IIIA, POA Urinary tract infection, POA Diabetes mellitius type2 Benign prostatic hyperplasia POA Hypertension Hyperlipidemia] PLAN: Left occipital hemorrhagic infarct, POA * Patient has partial hemianopia in the right eye head CT and MRI confirmed acute hemorrhagic infarct in the left occipital lobe * Patient echo showed possible left ventricular thrombus, repeat study with contrast will be performed to rule out * A neuro and neurosurgery consult has been placed pending recommendations * Continue atorvastatin * Continue home blood pressure medications lisinopril 40 mg and amlodipine 5 mg * Regular blood pressure checks goal less than SBP 130 * PT and speech therapy has been ordered * Continue telemetry, neuro checks every 4 hours, and bedrest Hypertension * Resume Home blood pressure medications * Add p.r.n. hydralazine if systolic blood pressure over 160 * In the light of hemorrhagic stroke findings from imaging systolic blood pre ssure goal is less than 130 CKD stage IIIA * Patient creatinine is 1.3 and BUN 22 * Continue lisinopril 40 mg daily * We will avoid nephrotoxic agents * Monitor labs in the a.m. Diabetes mellitus type 2 * Patient's HB A1c at 7.7 * Start insulin sliding scale with insulin regular * We will adjust in 24 hours with insulin glargine and insulin regular Continue GI prophylaxis with Protonix and DVT prophylaxis with SCDs We will further evaluate the patient based on recommendations from Neurology and Neurosurgery ATTESTATION BY PHYSICIAN I have seen and examined the patient. I reviewed the documentation, medical decision making, and treatment plan as noted by the resident provider above. I agree with the findings and plan of care. Zay Umanzor MD, HARSHAVARDHA MD Jun 18, 2025 19:07
[2025-06-18] MEDS ORDERED: NON-FORMULARY MEDICATION 1 EACH (Rosuvastatin Calcium 1 TAB) PO SCH (21:00)
--- NOTE | 2025-06-18 21:09 | NUR ---
Dr. Santo at the bedside. As per physician patient needs loop recorder by cardiology, and MRA head and neck.
--- NOTE | 2025-06-18 21:50 | CONS ---
CONSULTATION NOTE Date of Service: Jun 18, 2025 Reason for Consultation: Eval of vision loss Requesting Physician: Hospitalist HISTORY OF PRESENT ILLNESS: Mr. Taveras is a patient with a history of diabetes with neuropathy, hypertension, and dyslipidemia presenting with right-sided vision loss that began approximately one week ago. He reports that on night, while using his phone, he noticed blurriness on the right side of his visual field. He initially did not seek immediate medical attention, attributing the issue to his previous cataract surgery and lens replacement from a couple of years ago. The vision loss has been particularly noticeable while driving, with the patient describing difficulty seeing his when turning his head. This prompted him to visit an eye doctor at the [facility], where tests were conducted, and he was informed of a possible stroke. Subsequently, he was referred to the hospital for further evaluation. He denies experiencing any headaches associated with the vision loss. He also reports no history of previous strokes, atrial fibrillation, or cardiac arrhythmias. The patient's vision loss has impacted his daily functioning, particularly his ability to drive safely. Medical History - Diabetes with neuropathy - Hypertension - Dyslipidemia, controlled - Cataract surgery with lens replacement Surgical History - Cataract surgery with lens implantation, approximately two years ago Social History - Substance Use: Denies smoking and recreational drug use - Occupation: Drives occasionally (though advised against it due to vision issues) REVIEW OF SYSTEMS CONSTITUTIONAL: Denies fever, chills, or fatigue. HEAD/FACE: No signs of trauma. EENT: Positive for vision loss on the right side of visual field, blurry vision on right side. RESPIRATORY: Denies shortness of breath, cough, wheezing CARDIOVASCULAR: Denies chest pain, palpitation, syncope GASTROINTESTINAL/ABDOMINAL: Denies abdominal pain, constipation, diarrhea, nausea or vomiting GENITOURINARY: Denies dysuria or hematuria. MUSCULOSKELETAL: Denies joint pain, tenderness, or trauma. INTEGUMENTARY: Denies rash or itchiness NEUROLOGICAL/PSYCH: Negative for headaches. PAST MEDICAL HISTORY: As above PAST SURGICAL HISTORY: as above PAST SOCIAL HISTORY: no tobacco alcohol or rec drug abuse FAMILY HISTORY: none Coded Allergies: No Known Drug Allergies (Unverified Allergy, Unknown, 06/17/25) PHYSICAL EXAM EYES: Anicteric. Pupils equal and reactive. HENT: No oral thrush seen, moist Oral mucosa NECK: Supple, no JVD or thyromegaly. LUNGS: Good air entry. No rales, no rhonchi. CARDIOVASCULAR: S1, S2 regular. No murmur heard. ABDOMEN: Soft, non tender, bowel sounds present, no organomegaly CENTRAL NERVOUS SYSTEM: vision loss right side SKIN: No rashes, no swelling. LYMPHATICS: No peripheral lymphadenopathy MUSCULOSKELETAL: No joint swelling, erythema or tenderness. EXTREMITIES: No cyanosis or clubbing BACK: No deformity, no pressure ulcer. GENITOURINARY: No dysuria or hematuria Vital Sign (Last 24 Hours) 06/18/25 06/18/25 06/18/25 11:30 11:43 15:00 Temp 97.5 Pulse 54 Resp 19 B/P (MAP) 119/52 Pulse Ox 97 O2 Delivery Room Air O2 Flow Rate 0 FiO2 21 Intake & Output (last 24hrs) 06/17/25 06/17/25 06/18/25 14:59 22:59 06:59 Intake Total 500.0 ml 575.0 ml Output Total 600 ml 170 ml Balance -100.0 ml 405.0 ml LABS: Laboratory: Test 06/18/25 19:56 06/18/25 04:45 06/17/25 18:20 06/17/25 15:40 Range/Units Whole Blood Glucose 177 #H 70-110 MG/DL White Blood Count 10.5 4.8-10.8 K/uL Red Blood Count 4.99 4.50-6.20 MIL/uL Hemoglobin 14.3 14.0-18.0 g/dL Hematocrit 43.8 42-54 % Mean Corpuscular Volume 87.8 79-99 fL Mean Corpuscular Hemoglobin 28.7 27.0-33.0 pg Mean Corpuscular Hemoglobin Concent 32.6 32.0-36.0 g/dL Red Cell Distribution Width 15.2 11.0-15.5 % Platelet Count 236 130-400 K/uL Mean Platelet Volume 9.5 7.5-10.5 fL Immature Granulocyte % (Auto) 0.3 0-1 % Neutrophils (%) (Auto) 63.4 40.0-77.0 % Lymphocytes (%) (Auto) 21.9 21.0-51.0 % Monocytes (%) (Auto) 9.9 3.0-13.0 % Eosinophils (%) (Auto) 3.7 0.0-8.0 % Basophils (%) (Auto) 0.8 0.0-5.0 % Neutrophils # (Auto) 6.7 1.8-7.7 K/uL Lymphocytes # (Auto) 2.3 1.0-4.8 K/uL Monocytes # (Auto) 1.0 0.1-1.0 K/uL Eosinophils # (Auto) 0.39 0.00-0.70 K/uL Basophils # (Auto) 0.08 0.00-0.20 K/uL Absolute Immature Granulocyte (auto 0.03 0-1 K/uL Nucleated Red Blood Cells 0.0 0.0-0.19 % Prothrombin Time 12.0 H 9.6-11.6 SEC Prothromb Time International Ratio 1.15 0.85-1.15 Activated Partial Thromboplast Time 31.9 26.3-35.5 SEC Sodium Level 138 136-145 mmol/L Potassium Level 4.1 3.5-5.1 mmol/L Chloride Level 105 101-111 mmol/L Carbon Dioxide Level 27 21-32 mmol/L Blood Urea Nitrogen 22 H 7-18 mg/dL Creatinine 1.3 0.5-1.3 mg/dL Glomerular Filtration Rate Calc 56 >90 mL/min Random Glucose 96 70-105 mg/dL Hemoglobin A1c 7.7 H 4.0-6.0 % Estimated Average Glucose (eAG) 174 H 70-126 mg/dL Total Calcium 9.3 8.5-10.1 mg/dL Phosphorus Level 3.4 2.5-4.9 mg/dL Magnesium Level 2.20 1.80-2.40 mg/dL Urine Color LIGHT-YELLOW YELLOW Urine Appearance CLEAR CLEAR Urine pH 5.5 5.0-8.0 Urine Specific [place] 1.017 1.001-1.031 Urine Protein 10 H NEGATIVE mg/dL Urine Glucose (UA) >=1000 H NEGATIVE mg/dL Urine Ketones NEGATIVE NEGATIVE mg/dL Urine Occult Blood NEGATIVE NEGATIVE Urine Nitrate NEGATIVE NEGATIVE Urine Bilirubin NEGATIVE NEGATIVE mg/dL Urine Urobilinogen 0.2 0.2-1.0 mg/dL Urine Leukocyte Esterase 75 H NEGATIVE [place]/uL Urine RBC 2-5 H 0-1 /HPF Urine WBC 11-25 H 0-1 /HPF Urine Squamous Epithelial Cells RARE 0-2 /HPF Urine Bacteria FEW None Seen /HPF Total Creatine Kinase 128 21-232 U/L Troponin I High Sensitivity 26 4-75 ng/L LDL Cholesterol 59 0-99 mg/dL DIAGNOSTICS / RADIOLOGY: MRI brain left occipital ischemic stroke w/ hemorrhage ASSESSMENT / PLAN: Mr. Taveras is a patient with a history of diabetes, neuropathy, hypertension, and dyslipidemia presenting with right-sided vision loss that started approximately one week ago. Acute ischemic stroke with hemorrhagic transformation Assessment: Mr. Taveras experienced sudden onset of right-sided vision loss approximately one week ago. Initial ophthalmologic evaluation at the [facility] suggested a stroke, prompting referral to the hospital. Imaging studies (CT and MRI) reveal an ischemic stroke in the posterior left hemisphere that has undergone hemorrhagic transformation. The location and nature of the stroke are consistent with the patient's visual field deficits. Risk factors for stroke include the patient's history of diabetes, hypertension, dyslipidemia, and obesity. The stroke is believed to be embolic in origin, with possible sources including atherosclerotic plaques in the posterior cerebral circulation or a cardiac source. Plan: - Avoid anticoagulation or antiplatelet therapy at this time. - Obtain MRA head and neck - Review recent echocardiogram results (showing mildly dilated left ventricle and reduced ejection fraction of 45-50%) - Consult cardiology for loop recorder placement - Advise patient not to drive due to profound right-sided visual field defect - Educate patient on compensatory strategies for visual field loss Cardiovascular risk factors Assessment: Mr. Taveras has multiple cardiovascular risk factors, including diabetes, hypertension, dyslipidemia, and obesity. These conditions likely contributed to the development of his stroke. Recent echocardiogram shows evidence of cardiac dysfunction with a mildly dilated left ventricle and reduced ejection fraction (45-50%), which may increase the risk of cardioembolic events. Plan: - Continue current management of diabetes, hypertension, and dyslipidemia - Emphasize importance of risk factor modification and medication adherence - Monitor renal function (most recent creatinine 1.3, GFR 56) Thank you for your consultation. NOAH IBARRA MD Jun 18, 2025 21:50
[2025-06-19] VITALS (15 sets, daily range): BP systolic 120–143; BP diastolic 58–75; PULSE 58–75; RESP 13–21; TEMP 98–98.8; O2SAT 96–98
[2025-06-19 03:44] LABS: IMMATURE GRANULOCYTE ABSOLUTE 0.04 K/uL (0-1); NUCLEATED RED BLOOD CELLS 0.0 % (0.0-0.19); PLATELET COUNT (AUTO) 237 K/uL (130-400); RED BLOOD CELL COUNT(AUTO) 4.84 MIL/uL (4.50-6.20); RED CELL DISTRIBUTION WIDTH 15.0 % (11.0-15.5); WHITE BLOOD COUNT (AUTO) 10.3 K/uL (4.8-10.8)
[2025-06-19 03:56] LABS: CREATININE 1.5 mg/dL (0.5-1.3); GLOMERULAR FILTR. RATE CALC 47.0 mL/min (>90); GLUCOSE,RANDOM 149.0 mg/dL (70-105); SODIUM SERUM 136.0 mmol/L (136-145); UREA NITROGEN, BLOOD 22.0 mg/dL (7-18)
[2025-06-19] MEDS: PERFLUTREN PROTEIN-A MICROSPHR 0.22 MG/ML VIAL IV ONE (07:00)
--- NOTE | 2025-06-19 07:51 | HMCIMG ---
EXAMINATION: DUPLEX ULTRASOUND EXAMINATION OF THE BILATERAL CAROTID AND VERTEBRAL ARTERIES. CLINICAL HISTORY: To rule out carotid stenosis. COMPARISON: None provided. TECHNIQUE: Real-time ultrasound scan of the bilateral carotid and vertebral arteries, 2-D grayscale, with color Doppler flow and spectral waveform analysis. FINDINGS: Color and spectral Doppler interrogation of the carotid vessels on the right demonstrate peak systolic velocities as follows: CCA (Proximal and distal): 46 and 45 cm/s respectively. Bulb: 47 cm/s. ECA: 57 cm/s. ICA (Proximal, mid, and distal): 47, 55, and 49 cm/s respectively. Vertebral artery demonstrates antegrade flow: 38 cm/s. Right ICA/CCA ratio: 1.2 Peak systolic velocities on the left are as follows: CCA (Proximal and distal): 46 and 41 cm/s respectively. Bulb: 40 cm/s. ECA: 59 cm/s. ICA (Proximal, mid, and distal): 46, 53, and 49 cm/s respectively. Vertebral artery demonstrates antegrade flow: 35 cm/s. Left ICA/CCA ratio: 1.3 Both the common carotid arteries and their branches reveal mild intimal thickening. There are calcified plaques in the bilateral bulb causing about 20% to 30% diameter stenosis. IMPRESSION: Mild intimal thickening in the bilateral carotid arteries and their branches. Calcified plaques in the bilateral bulb causing about 20% to 30% diameter stenosis. There is no significant flow limiting lesions in the remainder of the arteries. /[place]
--- NOTE | 2025-06-19 09:17 | NUR ---
[facility] Call/Service Connection Spoke to the [facility] Care Coordination Team. Patient is pending initial dc plan. Anticipate need for SNF/IRU, depending on the degree of deficits resulting from the stroke. Patient is service connected for SNF if needed.
[2025-06-19] MEDS: 0.9%NACL 1000ML 1,000 ML IV SCH (09:19)
[2025-06-19] MEDS: LISINOPRIL 40 MG TABLET PO SCH (09:19)
[2025-06-19] MEDS: amLODIPine 5 MG TAB PO SCH (09:19)
--- NOTE | 2025-06-19 09:35 | PN ---
[facility] PROGRESS NOTE Date Patient Seen: Jun 19, 2025 Time of Visit: 09:33 Supervising Physician: Rickey Jeter MD Primary Care Physician: self referral Outpatient Specialists: Inpatient Consults: Dr Santo, Dr Brooks, Dr Gutierrez, Dr Streeter Admitting: Armando Mercado MD PROBLEM LIST: Acute ischemic stroke with hemorrhagic transformation POA Rt eye Loss of peripheral vision CKD stage IIIA, POA Moderate to severe aortic stenosis with a 39 mm peak gradient 25 mm mean gradient and valve area of2 0.9 cm2. Acute Cystitis, POA Hyperglycemia in the presence of T2DM POA A1C 7.7 Essential Hypertension Hyperlipidemia Obesity BMI 30.2 Claustrophobia INTERVAL HISTORY: No major overnight events. He is awake alert and oriented x3. Per neurology recommendation he is pending MRA of carotids and MRA of the brain without contr ast. Cr 1.5 increased from yesterday. Started NS at 50 ml /hr x 1 day to improve kidney function. 2D echo with contrast was performed today to rule out left ventricular thrombus. it showed LVEF of 60 65% no left ventricular thrombus noted on this study. Previous TTE shows - moderate valvular aortic stenosis. Highest mean aortic valve gradient is 25mmHg, highest pk 39gradient. Calculated ANILA 0.9cm2. "No intervention planned per Cardiology at this time due to acute hemorrhagic stroke, patient to continue on baby aspirin, atorvastatin amlodipine and lisinopril.continue Jardiance 25 mg daily and Kerendia 10 mg daily upon discharge.Follow-up with Dr. Vicki Nolan is 7-10d after discharge" as PER CARDIOLOGY. For now we will contiune to follow neurology recommendations. REVIEW OF SYSTEMS: Const: no fever, fatigue, or weight changes Eyes:+ RT eye peripheral vision loss ENT: No congestion, ear pain, or sore throat C/V: no chest pain, palpitations or edema Resp: No cough, congestion, wheezing , or Shortness of breath GI: No abdominal pain, nausea, vomiting, constipation, or diarrhea : No incontinence of or dyuria M/S: No joint or pain swelling Skin: No rash Neuro: no headache, focal numbness, or weakness, dizziness or seizures Psych: no depression or anxiety Heme: no abnormal bruising or bleeding Lymph: no swollen glands PHYSICAL EXAM: GENERAL: alert, weak, awake oriented x 3 HEENT: EOMI, Sclera non icteric, moist mucosa NECK: Supple, no JVD, trachea midline LUNGS: Clear breath sounds bilaterally. No wheezes HEART: Regular rate and rhythm. Normal S1 and S2, without murmurs ABD: Abdomen soft, nontender. Bowel sounds present EXT: No clubbing cyanosis or edema NEURO: Alert and oriented to person, follows commands NIH stroke scale : 1A: Level of consciousness: 0] 1B: Ask months and age: [0 1C: Blinks eyes and squeezes hand: 0 2: Horizontal extraocular movements: 1 3. : Visual tellez: 1 4.: Facial palsy: 0 5A: Left arm motor drift: 0 5 B: Right arm motor drift: 0 6A: Left leg motor drift: 0 6 B: Right leg motor drift: 0 7.: Limb ataxia: 0 8.: Sensation: 0 9.: Language aphasia: 0 10.: Dysarthria 0 11.: Extension/inattention:0 Score of 2 Vital Signs (last 8hr) Date Time Temp Pulse Resp B/P (MAP) Pulse Ox O2 Delivery O2 Flow Rate FiO2 06/19/25 04:00 98.1 06/19/25 03:41 58 13 143/69 99 06/19/25 03:26 60 17 135/71 99 06/19/25 03:13 62 17 128/58 100 LABS: Hematology Labs: Test 06/19/25 03:33 Range/Units White Blood Count 10.3 4.8-10.8 K/uL Red Blood Count 4.84 4.50-6.20 MIL/uL Hemoglobin 13.9 L 14.0-18.0 g/dL Hematocrit 43.0 42-54 % Mean Corpuscular Volume 88.8 79-99 fL Mean Corpuscular Hemoglobin 28.7 27.0-33.0 pg Mean Corpuscular Hemoglobin Concent 32.3 32.0-36.0 g/dL Red Cell Distribution Width 15.0 11.0-15.5 % Platelet Count 237 130-400 K/uL Mean Platelet Volume 9.5 7.5-10.5 fL Immature Granulocyte % (Auto) 0.4 0-1 % Neutrophils (%) (Auto) 68.8 40.0-77.0 % Lymphocytes (%) (Auto) 16.1 L 21.0-51.0 % Monocytes (%) (Auto) 8.3 3.0-13.0 % Eosinophils (%) (Auto) 5.4 0.0-8.0 % Basophils (%) (Auto) 1.0 0.0-5.0 % Neutrophils # (Auto) 7.1 1.8-7.7 K/uL Lymphocytes # (Auto) 1.7 1.0-4.8 K/uL Monocytes # (Auto) 0.9 0.1-1.0 K/uL Eosinophils # (Auto) 0.56 0.00-0.70 K/uL Basophils # (Auto) 0.10 0.00-0.20 K/uL Absolute Immature Granulocyte (auto 0.04 0-1 K/uL Nucleated Red Blood Cells 0.0 0.0-0.19 % Chemistry Labs: Test 06/19/25 06:58 06/19/25 03:33 06/18/25 04:45 06/17/25 15:40 Range/Units Whole Blood Glucose 117 H 70-110 MG/DL Sodium Level 136 136-145 mmol/L Potassium Level 4.2 3.5-5.1 mmol/L Chloride Level 103 101-111 mmol/L Carbon Dioxide Level 28 21-32 mmol/L Blood Urea Nitrogen 22 H 7-18 mg/dL Creatinine 1.5 H 0.5-1.3 mg/dL Glomerular Filtration Rate Calc 47 >90 mL/min Random Glucose 149 #H 70-105 mg/dL Total Calcium 8.5 8.5-10.1 mg/dL Hemoglobin A1c 7.7 H 4.0-6.0 % Estimated Average Glucose (eAG) 174 H 70-126 mg/dL Phosphorus Level 3.4 2.5-4.9 mg/dL Magnesium Level 2.20 1.80-2.40 mg/dL Total Creatine Kinase 128 21-232 U/L Troponin I High Sensitivity 26 4-75 ng/L LDL Cholesterol 59 0-99 mg/dL Coagulation Labs: Test 06/18/25 04:45 Range/Units Prothrombin Time 12.0 H 9.6-11.6 SEC Prothromb Time International Ratio 1.15 0.85-1.15 Activated Partial Thromboplast Time 31.9 26.3-35.5 SEC DIAGNOSTICS / RADIOLOGY RESULTS: [ [place] [address] [place] [id number] IMAGING REPORT Signed PATIENT: SHELBY MONTES MR#: [id number] : 1945 SEX: M AGE: 79 LOCATION: 2CH ORDER [id number] STATUS: ADM IN REPORT#: [id number] SERVICE [id number] REASON: RULE OUT LEFT VENTRICULAR APICAL THROMBUS ORDERING PHYSICIAN: NENA GUTIERREZ MD PROCEDURE: ECHO FU LD - ECHO 2-D F/U-LTD APPROVED REPORT EXAM: Limited two-dimensional echocardiogram with contrast INDICATION ICD: Rule out ventricular apical thrombus Contrast Details Indication: Rule out thrombus Agent/Amount Used: Optison 2mL 2D Dimensions RVDd 3.7 cm LVED Vol(simp.) 137.9 mL LVES Vol(simp.) 55.4 mL LVEF(%, simp.) 60 % Left Ventricle The left ventricle is normal size. There is normal left ventricular wall thickness. LVEF is 60-65%. No left ventricle thrombus noted on this study with contrast. Indeterminate diastolic dysfunction. Right Ventricle The right ventricle is normal size. The right ventricular systolic function is normal. Atria The left atrium size is normal. The right atrium size is normal. Aortic Valve The aortic valve is not assessed. Mitral Valve The mitral valve is not assessed. Tricuspid Valve The tricuspid valve is not assessed. Great Vessels IVC is not visualized. Pericardium There is no pericardial effusion. Other Information Quality : Adequate, Limited/Follow-up Conclusion LVEF is 60-65%. No left ventricle thrombus noted on this study with contrast. DICTATED BY: NAOMIE BARBOSA MD DATE: 06/19/25 0707 ELECTRONICALLY SIGNED BY: NAOMIE BARBOSA MD DATE: 06/19/25 [id number] PLAN NEURO: Minimize central acting medications as possible. Maintain fall precautions, adequate lighting during the day MRA of neck and brain PULMONARY: Supplemental 02 as needed. Maintain aspiration precautions at all times CARDIOVASCULAR: Follow hemodynamics. Vital signs per facility protocol GI & NUTRITION: Continue with nutritional support. Continue stool softeners and laxatives as needed. KIDNEYS & ELECTROLYTES: Strict monitoring of intake, output and overall fluid balance. Avoid nephrotoxic medications to the extent possible. Medications to be dosed according to renal function. Monitor electrolytes and replace as needed ENDOCRINE: Maintain blood glucose between 100-180 at all times. Hypoglycemia protocol in place INFECTIOUS DISEASE: Trend temperature, WBC and procalcitonin level Follow cultures, deescalate antibiotics as soon as possible. Panculture if new onset fever ONCOLOGY/HEMATOLOGY/COAGULATION: Monitor for s/s of bleeding Monitor hemoglobin, coagulation studies as needed SKIN: Pressure ulcer prevention per facility protocol Specialty mattress ORTHO/REHAB: Continue PT/OT Prophylaxis: Continue GI and DVT prophylaxis Code Status: Full Resuscitation Disposition: TBD Other: ATTESTATION BY PHYSICIAN The patient has been seen and evaluated, the case has been discussed with the AUDIO VISUAL ARTS DIRECTOR, I agree with the clinical findings and plan of care. Rickey Jeter MD, [facility] Jun 19, 2025 09:35
--- NOTE | 2025-06-19 10:20 | NUR ---
DC: HOME with outpt PT at [facility] met with pt's Yesy [phone]. Pt is a [place] and receives medical care and medication at local [facility]. pt currently goes 2x a week for outpt PT for his hands at [facility] as well, transports to [facility] and as needed. PT is approved thru August reported . Pt is also seeing Dr Scottie Burgos. reports she assists pt as needed with dressing, grooming, meal prep and set up (cutting food), laundry and home management. Pt has a cane he uses to ambulate, grab bars in bathroom and a walker seat he does not use. Pt has no HH or HD services at this time. denies need for SNF or LTAC, pt to return home at ok and will transport home. Addendum: 06/19/25 at 1029 by [employer] Amended: Links added.
--- NOTE | 2025-06-19 10:23 | CONS ---
[facility] CARDIOLOGY CONSULTATION REPORT Cardiology consultation note dictated for Aubrey Barbosa MD Date Patient Seen: Jun 19, 2025 Requesting Physician: MORRIS Denson Reason for Consultation: Moderate History of Present Illness: This is an 79-year-old male with a past medical history of hypertension, hyperlipidemia, type 2 diabetes mellitus, CKD stage 3A, neuropathy, and BPH who presented to the ED with complaints loss of right eye peripheral vision for approximately 5 days. MRI of the brain on 06/18/2025 demonstrated an acute hemorrhagic left occipital lobe infarct. Bilateral carotid ultrasound on 06/18/2025 demonstrated bilateral bulbs with 20-30% diameter stenosis. The patient is currently undergoing an MRA of the brain and carotids today. Cardiology has been consulted for moderate aortic stenosis. 2D echo on 06/18/2025 demonstrated an LVEF of 45-50%, stage II diastolic dysfunction, cannot rule out left ventricular apical thrombus, moderate aortic valve stenosis, AV mean of 25 mmHg, AV peak of 39 mmHg, and ANILA of 0.9cm2. Echo with definity contrast is pending. Past Medical History: As per HPI and summarized below Past Surgical History: Cataract surgery Hernia repair Appendectomy Family History: Noncontributory Social History: The patient lives with his . Habits: Per medical record, the patient denied alcohol, tobacco, or illicit drug use. Home Meds: Aspirin 81 mg daily Rosuvastatin 5 mg nightly Amlodipine 5 mg daily Lisinopril 40 mg daily Jardiance 25 mg daily Kerendia 10 mg daily Flomax 0.4 mg q.h.s. Glipizide 10 mg b.i.d. Ozempic 1 mg subQ weekly Current Meds: Medications Dose Ordered Sig/Ra Start Time Stop Time Status Last Admin Acetaminophen 650 mg Q6H PRN 06/17/25 19:30 07/17/25 19:29 Hydralazine HCl 10 mg Q6H PRN 06/17/25 19:30 07/17/25 19:29 Ondansetron HCl 4 mg Q6H PRN 06/17/25 19:30 07/17/25 19:29 Insulin Human Regular INSULIN SLIDING SCAL... ACHS 06/17/25 21:00 07/17/25 20:59 06/18/25 20:10 Atorvastatin Calcium 40 mg HS 06/17/25 21:00 07/17/25 20:59 06/18/25 20:09 Pantoprazole Sodium 40 mg DAILY 06/18/25 09:00 07/18/25 08:59 06/19/25 09:20 Diphenhydramine HCl 12.5 mg ONCE PRN 06/18/25 09:30 07/18/25 09:29 06/19/25 09:20 Amlodipine Besylate 5 mg DAILY 06/19/25 09:00 07/19/25 08:59 06/19/25 09:19 Lisinopril 40 mg DAILY 06/19/25 09:00 07/19/25 08:59 06/19/25 09:19 Tamsulosin HCl 0.4 mg HS 06/18/25 21:00 07/18/25 20:59 06/18/25 20:09 Ceftriaxone Sodium 2 gm Q24H 06/18/25 19:30 06/28/25 19:29 06/18/25 20:09 Polyethylene Glycol 17 gm DAILY 06/19/25 09:00 07/19/25 08:59 06/19/25 09:20 Sodium Chloride 1,000 ml @ 50 mls/hr Q20H 06/19/25 09:30 07/19/25 09:29 06/19/25 09:19 Review of Systems: Unable to obtain a review of systems as the patient is out of room. Physical Examination: GENERAL: [No acute distress.] HEAD: [Normal with no signs of head trauma.] EYES: [PERRLA, EOMI, conjunctiva and sclera normal.] ENT: [Hearing grossly intact, normal oropharynx.] NECK: [Supple without JVD. There is no tenderness, lymphadenopathy, or masses. No thyromegaly. Normal carotid upstrokes without bruits.] LUNGS: [Clear breath sounds bilaterally. No wheezes, or rhonchi.] HEART: [Normal rate and rhythm. Normal S1 and S2 without murmurs, gallop or rub.] VASC: [Peripheral pulses +2 bilaterally.] ABD: [Bowel sounds normal, soft, nontender, no masses, no organomegaly. No audible bruits.] : [Not examined] LYMPH: [No lymphadenopathy noted.] EXT: [No clubbing, cyanosis or edema.] SKIN: [No rashes or lesions noted.] NEURO: [Awake, alert, and oriented x3. No focal sensory or strength deficits noted.] Vital Signs (last 8hr) Date Time Temp Pulse Resp B/P (MAP) Pulse Ox O2 Delivery O2 Flow Rate FiO2 06/19/25 04:00 98.1 06/19/25 03:41 58 13 143/69 99 06/19/25 03:26 60 17 135/71 99 06/19/25 03:13 62 17 128/58 100 Laboratory: Hematology Labs: Test 06/19/25 03:33 Range/Units White Blood Count 10.3 4.8-10.8 K/uL Red Blood Count 4.84 4.50-6.20 MIL/uL Hemoglobin 13.9 L 14.0-18.0 g/dL Hematocrit 43.0 42-54 % Mean Corpuscular Volume 88.8 79-99 fL Mean Corpuscular Hemoglobin 28.7 27.0-33.0 pg Mean Corpuscular Hemoglobin Concent 32.3 32.0-36.0 g/dL Red Cell Distribution Width 15.0 11.0-15.5 % Platelet Count 237 130-400 K/uL Mean Platelet Volume 9.5 7.5-10.5 fL Immature Granulocyte % (Auto) 0.4 0-1 % Neutrophils (%) (Auto) 68.8 40.0-77.0 % Lymphocytes (%) (Auto) 16.1 L 21.0-51.0 % Monocytes (%) (Auto) 8.3 3.0-13.0 % Eosinophils (%) (Auto) 5.4 0.0-8.0 % Basophils (%) (Auto) 1.0 0.0-5.0 % Neutrophils # (Auto) 7.1 1.8-7.7 K/uL Lymphocytes # (Auto) 1.7 1.0-4.8 K/uL Monocytes # (Auto) 0.9 0.1-1.0 K/uL Eosinophils # (Auto) 0.56 0.00-0.70 K/uL Basophils # (Auto) 0.10 0.00-0.20 K/uL Absolute Immature Granulocyte (auto 0.04 0-1 K/uL Nucleated Red Blood Cells 0.0 0.0-0.19 % Chemistry Labs: Test 06/19/25 06:58 06/19/25 03:33 06/18/25 04:45 06/17/25 15:40 Range/Units Whole Blood Glucose 117 H 70-110 MG/DL Sodium Level 136 136-145 mmol/L Potassium Level 4.2 3.5-5.1 mmol/L Chloride Level 103 101-111 mmol/L Carbon Dioxide Level 28 21-32 mmol/L Blood Urea Nitrogen 22 H 7-18 mg/dL Creatinine 1.5 H 0.5-1.3 mg/dL Glomerular Filtration Rate Calc 47 >90 mL/min Random Glucose 149 #H 70-105 mg/dL Total Calcium 8.5 8.5-10.1 mg/dL Hemoglobin A1c 7.7 H 4.0-6.0 % Estimated Average Glucose (eAG) 174 H 70-126 mg/dL Phosphorus Level 3.4 2.5-4.9 mg/dL Magnesium Level 2.20 1.80-2.40 mg/dL Total Creatine Kinase 128 21-232 U/L Troponin I High Sensitivity 26 4-75 ng/L LDL Cholesterol 59 0-99 mg/dL Coagulation Labs: Test 06/18/25 04:45 Range/Units Prothrombin Time 12.0 H 9.6-11.6 SEC Prothromb Time International Ratio 1.15 0.85-1.15 Activated Partial Thromboplast Time 31.9 26.3-35.5 SEC Diagnostics / Radiology: 2D echocardiogram on 06/18/2025 Conclusion LVEF is 45-50%. DIFFICULT TO ASSESS WALL MOTION SECONDARY TO SUBOPTIMAL VIEWS OBTAINED Cannot rule out left ventricular apical thrombus. CONSIDER REPEAT STUDY WITH CONTRAST AGENT There is moderate valvular aortic stenosis. Highest mean aortic valve gradient is 25mmHg, highest pk 39gradient. Calculated ANILA 0.9cm2. Impression and Plan: Acute hemorrhagic left occipital lobe infarct Moderate to severe aortic stenosis Nonobstructive bilateral carotid artery disease via Doppler on 06/18/2025 Hypertension Hyperlipidemia Type 2 diabetes mellitus CKD stage IIIA Neuropathy BPH Moderate to severe aortic stenosis with a 39 mm peak gradient 25 mm mean gradient and valve area of2 0.9 cm2. 2D echo on 06/18/2025 demonstrated an LVEF of 45-50%, stage II diastolic dysfunction, cannot rule out left ventricular apical thrombus, moderate aortic valve stenosis, AV mean of 25 mmHg, AV peak of 39 mmHg, and ANILA of 0.9cm2 -No intervention planned due to acute hemorrhagic stroke -Continue Aspirin 81 mg daily, Atorvastatin 40mg qhs, Amlodipine 5 mg daily, and Lisinopril 40 mg daily. -Plan to continue Jardiance 25 mg daily and Kerendia 10 mg daily upon discharge. -no LV thrombus noted with contrast echo -Follow-up with Dr. Vicki Nolan is 7-10d after discharge ATTESTATION BY PHYSICIAN I have seen and examined the patient. I reviewed the documentation, medical decision making, and treatment plan as noted by the mid-level provider above. I agree with the findings and plan of care. AUBREY BARBOSA MD, [facility] Jun 19, 2025 10:23 AUBREY BARBOSA MD Jun 19, 2025 10:43
--- NOTE | 2025-06-19 11:08 | HMCSR ---
APPROVED REPORT EXAM: Limited two-dimensional echocardiogram with contrast INDICATION ICD: Rule out ventricular apical thrombus Contrast Details Indication: Rule out thrombus Agent/Amount Used: Optison 2mL 2D Dimensions RVDd3.7 cmLVED Vol(simp.)137.9 mL LVES Vol(simp.)55.4 mL LVEF(%, simp.)60 % Left Ventricle The left ventricle is normal size. There is normal left ventricular wall thickness. LVEF is 60-65%. N o left ventricle thrombus noted on this study with contrast. Indeterminate diastolic dysfunction. Right Ventricle The right ventricle is normal size. The right ventricular systolic function is normal. Atria The left atrium size is normal. The right atrium size is normal. Aortic Valve The aortic valve is not assessed. Mitral Valve The mitral valve is not assessed. Tricuspid Valve The tricuspid valve is not assessed. Great Vessels IVC is not visualized. Pericardium There is no pericardial effusion. Other Information Quality : Adequate, Limited/Follow-up Conclusion LVEF is 60-65%. No left ventricle thrombus noted on this study with contrast.
--- NOTE | 2025-06-19 11:48 | PN ---
[facility] PROGRESS NOTE Date of Service: Jun 19, 2025 Time of Service: 11:20 History of Present Illness Mr. Taveras is an 79 year old male that was seen and examined today on 06/17/25. Patient has a past medical history of type 2 diabetes mellitus, hypertension, hyperlipidemia, CKD stage IIIA presented to the ED with sudden vision loss in the peripheral vision of right eye. He noticed these symptoms on 06/12/2025, was sudden in onset. He denies seizures, headaches, weakness, sensory deficits, balance issues. Patient notes that he has haziness in the right peripheral vision which had stayed constant and has not progressed. He denied having similar symptoms in the past. A CT scan of the head showed possible hemorrhagic infarct in the left occipital area, recommended to perform MRI brain for further characterization. Patient was admitted for possible hemorrhagic stroke. SUBJECTIVE: [ ] 06/18/2025: Patient was evaluated in room 218. Patient was alert oriented and well conversant. NIH stroke scale was 1. Patient did not have motor or sensory deficits. His cranial nerves were intact. MRI of the brain revealed acute hemorrhagic left occipital lobe infarct. 2D echo was performed that showed LVEF of 45-50%, moderate aortic valve stenosis and a possible left ventricular apical thrombus. Dr. Gutierrez recommended repeating 2D echo with contrast to rule out left thrombus. A neurology and neurosurgery consult has been placed. A PT and speech therapy consults have been placed. 06/19/2025: Patient was evaluated at the bedside. Patient was alert, oriented and well conversant. 2D echo was performed yesterday that demonstrated an LVEF of 45-50%, stage II diastolic dysfunction and underwent a repeat echo with contrast that ruled out LV thrombus today. Neurology has recommended to avoid anticoagulation or antiplatelet therapy at this time due to acute hemorrhagic stroke and to obtain MRA of the head and neck. Bilateral carotid ultrasound demonstrated bilateral bulbs with 20-30% diameter stenosis. His urine analysis showed pus cells and culture came back positive for E coli however he denies any urinary hesitancy, urgency, dysuria, or burning sensation. Further course of treatment will depend upon the results of MR angiography of brain and neck. REVIEW OF SYSTEMS CONSTITUTIONAL: Denies fevers, chills, or night sweats. No unintentional weight loss reported. NEUROLOGICAL: Denies headache, motor weakness, sensory deficit, vertigo/spinning sensation. Reports peripheral vision loss in the right eye. CARDIOVASCULAR: Denies any exertional angina, dyspnea on exertion, orthopnea, paroxysmal nocturnal dyspnea, palpitations PULMONARY: Denies any shortness of breath, cough, phlegm/sputum, hemoptysis, pleuritic chest pain. GASTROINTESTINAL: Denies any type of dysphagia to either liquids or solids. Denies nausea, vomiting, pyrosis, early satiety, abdominal pain, diarrhea, constipation GENITOURINARY: Denies frequency, urgency, nocturia, hematuria or incontinence DERMATOLOGIC: Denies rashes, itching, redness. PHYSICAL EXAM GENERAL APPEARANCE: The patient is awake, alert, and oriented, in no acute cardiopulmonary distress. NIH stroke scale 1 NEUROLOGICAL: Cranial nerves II-XII grossly intact. Motor is 5/5 in bilateral upper and lower extremities proximal to distal. No sensory deficits. HEENT: Face is symmetric. Pupils are equal and reactive. Extraocular movements are intact. Partial hemianopia in the right eye NECK: Supple. No JVD. No thyromegaly. No submental, submandibular, pre- /postauricular, occipital or supraclavicular lymphadenopathy. CHEST: Normal chest expansion. No Telemetry. LUNGS: Absence of any rales, rhonchi or any wheezing. CARDIOVASCULAR: Regular. S1 and S2 normal. No appreciable rubs, murmurs or gallops. ABDOMEN: Soft, nontender, and nondistended. There is no rebound, voluntary guarding, or rigidity. : Deferred. No [place]. EXTREMITIES: Non-edematous and not cyanotic. No clubbing. Good capillary refill. SKIN: No skin breakdown. Vital Signs (last 8hr) Date Time Temp Pulse Resp B/P (MAP) Pulse Ox O2 Delivery O2 Flow Rate FiO2 06/19/25 04:00 98.1 06/19/25 03:41 58 13 143/69 99 06/19/25 03:26 60 17 135/71 99 LABS: Laboratory: Test 06/19/25 06:58 06/19/25 03:33 06/18/25 04:45 06/17/25 18:20 Range/Units Whole Blood Glucose 117 H 70-110 MG/DL White Blood Count 10.3 4.8-10.8 K/uL Red Blood Count 4.84 4.50-6.20 MIL/uL Hemoglobin 13.9 L 14.0-18.0 g/dL Hematocrit 43.0 42-54 % Mean Corpuscular Volume 88.8 79-99 fL Mean Corpuscular Hemoglobin 28.7 27.0-33.0 pg Mean Corpuscular Hemoglobin Concent 32.3 32.0-36.0 g/dL Red Cell Distribution Width 15.0 11.0-15.5 % Platelet Count 237 130-400 K/uL Mean Platelet Volume 9.5 7.5-10.5 fL Immature Granulocyte % (Auto) 0.4 0-1 % Neutrophils (%) (Auto) 68.8 40.0-77.0 % Lymphocytes (%) (Auto) 16.1 L 21.0-51.0 % Monocytes (%) (Auto) 8.3 3.0-13.0 % Eosinophils (%) (Auto) 5.4 0.0-8.0 % Basophils (%) (Auto) 1.0 0.0-5.0 % Neutrophils # (Auto) 7.1 1.8-7.7 K/uL Lymphocytes # (Auto) 1.7 1.0-4.8 K/uL Monocytes # (Auto) 0.9 0.1-1.0 K/uL Eosinophils # (Auto) 0.56 0.00-0.70 K/uL Basophils # (Auto) 0.10 0.00-0.20 K/uL Absolute Immature Granulocyte (auto 0.04 0-1 K/uL Nucleated Red Blood Cells 0.0 0.0-0.19 % Sodium Level 136 136-145 mmol/L Potassium Level 4.2 3.5-5.1 mmol/L Chloride Level 103 101-111 mmol/L Carbon Dioxide Level 28 21-32 mmol/L Blood Urea Nitrogen 22 H 7-18 mg/dL Creatinine 1.5 H 0.5-1.3 mg/dL Glomerular Filtration Rate Calc 47 >90 mL/min Random Glucose 149 #H 70-105 mg/dL Total Calcium 8.5 8.5-10.1 mg/dL Prothrombin Time 12.0 H 9.6-11.6 SEC Prothromb Time International Ratio 1.15 0.85-1.15 Activated Partial Thromboplast Time 31.9 26.3-35.5 SEC Hemoglobin A1c 7.7 H 4.0-6.0 % Estimated Average Glucose (eAG) 174 H 70-126 mg/dL Phosphorus Level 3.4 2.5-4.9 mg/dL Magnesium Level 2.20 1.80-2.40 mg/dL Urine Color LIGHT-YELLOW YELLOW Urine Appearance CLEAR CLEAR Urine pH 5.5 5.0-8.0 Urine Specific [place] 1.017 1.001-1.031 Urine Protein 10 H NEGATIVE mg/dL Urine Glucose (UA) >=1000 H NEGATIVE mg/dL Urine Ketones NEGATIVE NEGATIVE mg/dL Urine Occult Blood NEGATIVE NEGATIVE Urine Nitrate NEGATIVE NEGATIVE Urine Bilirubin NEGATIVE NEGATIVE mg/dL Urine Urobilinogen 0.2 0.2-1.0 mg/dL Urine Leukocyte Esterase 75 H NEGATIVE [place]rence/uL Urine RBC 2-5 H 0-1 /HPF Urine WBC 11-25 H 0-1 /HPF Urine Squamous Epithelial Cells RARE 0-2 /HPF Urine Bacteria FEW None Seen /HPF Test 06/17/25 15:40 Range/Units Total Creatine Kinase 128 21-232 U/L Troponin I High Sensitivity 26 4-75 ng/L LDL Cholesterol 59 0-99 mg/dL Current Medications Medications (Trade) Dose Ordered Sig/Ra Route PRN Reason Start Time Stop Time Status Last Admin Dose Admin Acetaminophen (TYLenol 325MG TAB) 650 mg Q6H PRN PO TEMPERATURE GREATER THAN 101.5 06/17/25 19:30 07/17/25 19:29 Amlodipine Besylate (NorvASC 5MG TAB) 5 mg DAILY PO 06/19/25 09:00 07/19/25 08:59 06/19/25 09:19 5 MG Atorvastatin Calcium (LIPItor 40MG) 40 mg HS PO 06/17/25 21:00 07/17/25 20:59 06/18/25 20:09 40 MG Ceftriaxone Sodium (ROCEphine 1G INJ) 1 gm Q24H IVPB 06/17/25 19:30 06/18/25 09:18 DC 06/17/25 20:47 1 GM Ceftriaxone Sodium (Rocephin 2gm Inj) 2 gm Q24H IVPB 06/18/25 19:30 06/28/25 19:29 06/18/25 20:09 2 GM Diphenhydramine HCl (BENAdryl INJ) 12.5 mg ONCE PRN IV 30 mins before MRI 06/18/25 09:30 07/18/25 09:29 06/19/25 09:20 12.5 MG Famotidine (Pepcid 20mg Vial) 20 mg DAILY IV 06/18/25 09:00 06/17/25 19:26 DC Hydralazine HCl (APRESOLine 20MG INJ) 10 mg Q6H PRN IV For:SBP above 160;DBP above 90 06/17/25 19:30 07/17/25 19:29 Insulin Human Regular (humuLIN R 100 UNIT/ML 3ML) INSULIN SLIDING SCAL... ACHS SQ 06/17/25 21:00 07/17/25 20:59 06/18/25 20:10 2 UNIT Lactated Ringer's 1,000 ml @ 50 mls/hr Q20H IV 06/17/25 19:30 06/18/25 19:26 DC 06/18/25 13:30 50 MLS/HR Levetiracetam (kepPRA 500 MG/5 ML SD VIAL) 1,000 mg ONCE IV 06/17/25 19:30 06/17/25 19:31 DC Levetiracetam 500 mg/Sodium Chloride 100 ml @ 400 mls/hr Q12H IV 06/18/25 05:30 06/18/25 09:18 DC 06/18/25 04:45 400 MLS/HR Lisinopril (Prinivil 40mg) 40 mg DAILY PO 06/19/25 09:00 07/19/25 08:59 06/19/25 09:19 40 MG Lorazepam (AtiVAN) 1 mg ONCE PRN PO 30min before MRI 06/18/25 09:30 06/18/25 12:28 DC 06/18/25 12:28 1 MG Miscellaneous Medication (Rosuvastatin Calcium ) 1 tab HS PO 06/18/25 21:00 06/18/25 09:19 DC Morphine Sulfate (morPHINE 2MG SYG) 2 mg Q4H PRN IVP SEVERE PAIN (7-10) 06/17/25 20:00 06/18/25 09:18 DC Morphine Sulfate (morPHINE 4MG SYG) 2 mg Q4H PRN IVP SEVERE PAIN (7-10) 06/17/25 19:30 06/17/25 19:32 DC Ondansetron HCl (zoFRAN 4MG INJ) 4 mg Q6H PRN IV NAUSEA/VOMITING 06/17/25 19:30 07/17/25 19:29 Pantoprazole Sodium (PROTonix 40MG INJ) 40 mg DAILY IV 06/18/25 09:00 06/17/25 19:34 DC Pantoprazole Sodium (PROTonix 40MG INJ) 40 mg DAILY IV 06/18/25 09:00 07/18/25 08:59 06/19/25 09:20 40 MG Polyethylene Glycol (MIRalax 3350 17 GM POWD.PACK) 17 gm DAILY PO 06/19/25 09:00 07/19/25 08:59 06/19/25 09:20 17 GM Sodium Chloride 1,000 ml @ 50 mls/hr Q20H IV 06/19/25 09:30 07/19/25 09:29 06/19/25 09:19 50 MLS/HR Tamsulosin HCl (FloMAX) 0.4 mg HS PO 06/18/25 21:00 07/18/25 20:59 06/18/25 20:09 0.4 MG DIAGNOSTICS / RADIOLOGY: [ ] PATIENT: SHELBY TAVERAS MR#: [id number] : 1945 SEX: M AGE: 79 LOCATION: 2C ORDER 54 STATUS: ADM IN REPORT#: [id number] SERVICE 53 REASON: rule out carotid stenosis ORDERING PHYSICIAN: AIYANA KAUR PROCEDURE: CAROTID - US CAROTID DUPLEX EXAMINATION: DUPLEX ULTRASOUND EXAMINATION OF THE BILATERAL CAROTID AND VERTEBRAL ARTERIES. CLINICAL HISTORY: To rule out carotid stenosis. COMPARISON: None provided. TECHNIQUE: Real-time ultrasound scan of the bilateral carotid and vertebral arteries, 2-D grayscale, with color Doppler flow and spectral waveform analysis. FINDINGS: Color and spectral Doppler interrogation of the carotid vessels on the right demonstrate peak systolic velocities as follows: CCA (Proximal and distal): 46 and 45 cm/s respectively. Bulb: 47 cm/s. ECA: 57 cm/s. ICA (Proximal, mid, and distal): 47, 55, and 49 cm/s respectively. Vertebral artery demonstrates antegrade flow: 38 cm/s. Right ICA/CCA ratio: 1.2 Peak systolic velocities on the left are as follows: CCA (Proximal and distal): 46 and 41 cm/s respectively. Bulb: 40 cm/s. ECA: 59 cm/s. ICA (Proximal, mid, and distal): 46, 53, and 49 cm/s respectively. Vertebral artery demonstrates antegrade flow: 35 cm/s. Left ICA/CCA ratio: 1.3 Both the common carotid arteries and their branches reveal mild intimal thickening. There are calcified plaques in the bilateral bulb causing about 20% to 30% diameter stenosis. IMPRESSION: Mild intimal thickening in the bilateral carotid arteries and their branches. Calcified plaques in the bilateral bulb causing about 20% to 30% diameter stenosis. There is no significant flow limiting lesions in the remainder of the arteries. /[place] DICTATED BY: JENNIFER ONEIL MD DATE: 06/19/25849 ELECTRONICALLY SIGNED BY: JENNIFER ONEIL MD DATE: 06/19/25849 ASSESSMENT: Left occipital hemorrhagic infarct, POA CKD stage IIIA, POA Urinary tract infection, POA Diabetes mellitius type2 Benign prostatic hyperplasia POA Hypertension Hyperlipidemia] PLAN: Left occipital hemorrhagic infarct, POA * Patient has partial hemianopia in the right eye head CT and MRI confirmed acute hemorrhagic infarct in the left occipital lobe * Patient echo showed possible left ventricular thrombus, repeat study with contrast ruled out * Neurology recommended performing MR angiography brain and neck * Avoid anticoagulation and antiplatelet therapy as per Neurology recommendations * Continue atorvastatin * Continue home blood pressure medications lisinopril 40 mg and amlodipine 5 mg * Regular blood pressure checks goal less than SBP 130 * PT and speech therapy has been ordered * Continue telemetry, neuro checks every 4 hours, and bedrest Hypertension * Resume Home blood pressure medications * Add p.r.n. hydralazine if systolic blood pressure over 160 * In the light of hemorrhagic stroke findings from imaging systolic blood pressure goal is less than 130 Urinary tract infection, E coli * Urinalysis showed positive leukocyte esterase and pus cells * Urine culture showed growth of E coli susceptible to cefazolin * Continue IV cefazolin q.12 for 5 days CKD stage IIIA * Patient creatinine is 1.3 and BUN 22 * Continue lisinopril 40 mg daily * We will avoid nephrotoxic agents * Monitor labs in the a.m. Diabetes mellitus type 2 * Patient's HB A1c at 7.7 * Start insulin sliding scale with insulin regular * We will adjust in 24 hours with insulin glargine and insulin regular Continue GI prophylaxis with Protonix and DVT prophylaxis with SCDs We will further evaluate the patient based on recommendations from Neurology and Neurosurgery ATTESTATION BY PHYSICIAN I have seen and examined the patient. I reviewed the documentation, medical decision making, and treatment plan as noted by the resident provider above. I agree with the findings and plan of care. Zay Umanzor MD, HARSHAVARDHA MD Jun 19, 2025 11:48
--- NOTE | 2025-06-19 13:53 | HMCIMG ---
Preface MRA Carotid arteries TECHNIQUE: 3 - SAG 2D PC LOC - TR: 33.0 - TE: 6.0 - ET: 1.0 - Thk: 60.0 4 - SAG 2D PC LOC - TR: 33.0 - TE: 6.0 - ET: 1.0 - Thk: 60.0 5 - 3D TOF 6 SLAB - TR: 18.0 - TE: 2.7 - ET: 1.0 - Thk: 3.0 300 - COL:SAG 2D PC LOC - TR: 33.0 - TE: 6.0 - ET: 1.0 - Thk: 60.0 400 - COL:SAG 2D PC LOC - TR: 33.0 - TE: 6.0 - ET: 1.0 - Thk: 60.0 500 - COL:3D TOF 6 SLAB - TR: 18.0 - TE: 2.7 - ET: 1.0 - Thk: 3.0 501 - PJN:3D TOF 6 SLAB - TR: 18.0 - TE: 2.7 - ET: 1.0 - Thk: 3.0 502 - BILAT ROT - TR: 18.0 - TE: 2.7 - ET: 1.0 - Thk: 3.0 503 - R ROT - TR: 18.0 - TE: 2.7 - ET: 1.0 - Thk: 3.0 504 - L ROT - TR: 18.0 - TE: 2.7 - ET: 1.0 - Thk: 3.0 Contrast: None. Reformations: None. Findings: Aortic Arch The aortic arch is normal in calibers and contours. There is no evidence of aneurysm or stenosis. The arch vessel orifices are Widely patent. Innominate system The innominate artery is widely patent, without irregularity or stenosis. The origin of the right common carotid artery is widely patent, without stenosis. The right common carotid artery is normal along its entire length, without evidence of narrowing. Right common carotid system The right carotid bifurcation is widely patent, without stenosis. The right internal carotid artery is normal in calibers and contours to the skull base. The right external carotid artery and its branches are normal in calibers and contours. Right subclavian system The right subclavian artery is normal in calibers and contours. The right vertebral artery is patent, without evidence of stenosis. Left common carotid system The left carotid bifurcation is widely patent, without stenosis. The left internal carotid artery is normal in calibers and contours to the Skull base. The left external carotid artery and its branches are normal in calibers and contours. Left subclavian system The left subclavian artery is normal in calibers and contours. The left vertebral artery is normal in calibers and contours as well. The basilar artery is normal in calibers and contours, without evidence of stenosis. IMPRESSION: Normal MRA examination of the carotid arteries /[place]
--- NOTE | 2025-06-19 14:06 | HMCIMG ---
EXAM: MR Angiography Head without Intravenous Contrast. CLINICAL HISTORY: Stroke. TECHNIQUE: Magnetic resonance angiography images of the head without intravenous contrast. Three-dimensional MIP reformations performed. CONTRAST: Without. COMPARISON: CT Head 06/17/2025. FINDINGS: INTERNAL CAROTID ARTERIES: No significant stenosis. No aneurysm or AVM. ANTERIOR CEREBRAL ARTERIES: No significant stenosis. No aneurysm or AVM. MIDDLE CEREBRAL ARTERIES: No significant stenosis. No aneurysm or AVM. 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 BASILAR ARTERY: No significant stenosis. No aneurysm or AVM. VERTEBRAL ARTERIES: No significant stenosis. No aneurysm or AVM. There is a subacute hemorrhagic infarct in the left occipital lobe. Please see prior CT brain from 06/17/2025. IMPRESSION: 1. 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 2. 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 /[place]
--- NOTE | 2025-06-19 14:15 | NUR ---
SPEECH NOTE: FOLLOW UP INFORMATION ENGINEER coordinated with nurse Isabella. Pt tolerating diet recommendations regular solids, thin liquids with no overt s/s of aspiration. All questions answered. Addendum: 06/19/[address] [facility]ESSICA JOSEPH Amended: Links added.
[2025-06-20] VITALS: BP 132/68; PULSE 69; RESP 18; TEMP 97.9
[2025-06-20 04:00] VITALS: BP 118/59; PULSE 70; RESP 18; TEMP 98.1
[2025-06-20 04:40] LABS: IMMATURE GRANULOCYTE ABSOLUTE 0.03 K/uL (0-1); NUCLEATED RED BLOOD CELLS 0.0 % (0.0-0.19); PLATELET COUNT (AUTO) 222 K/uL (130-400); RED BLOOD CELL COUNT(AUTO) 4.84 MIL/uL (4.50-6.20); RED CELL DISTRIBUTION WIDTH 14.9 % (11.0-15.5); WHITE BLOOD COUNT (AUTO) 10.4 K/uL (4.8-10.8)
[2025-06-20 05:06] LABS: CREATININE 1.4 mg/dL (0.5-1.3); GLOMERULAR FILTR. RATE CALC 51.0 mL/min (>90); GLUCOSE,RANDOM 145.0 mg/dL (70-105); SODIUM SERUM 138.0 mmol/L (136-145); UREA NITROGEN, BLOOD 20.0 mg/dL (7-18)
[2025-06-20 08:00] VITALS: BP 127/60; PULSE 65; RESP 20; TEMP 98.6; O2SAT 97
[2025-06-20 12:00] VITALS: BP 135/70; PULSE 83; RESP 20; TEMP 98.7
--- NOTE | 2025-06-20 14:21 | DS ---
Discharge Summary Hospital Course Summary: Mr. Taveras is an 79 year old male presented to the ED with symptoms of worsening peripheral vision loss in the right eye. Patient has a past medical history of type 2 diabetes mellitus with neuropathy, hypertension, hyperlipidemia, CKD stage IIIA, and BPH. He noticed these symptoms on 06/12/2025, which was sudden in onset. He denies seizures, headaches, weakness, sensory deficits, and balance issues. Patient notes that he had haziness in the right peripheral vision which had stayed constant and has not progressed. He denied having similar symptoms in the past. A CT scan of the head showed possible hemorrhagic infarct in the left occipital area, and was further evaluated with MRI brain. Patient was admitted for management of hemorrhagic stroke. On physical exam he had partial hemianopia in the right eye. Patient had no deficits in vision in the left eye. All the extraocular movements were intact. Patient had no focal neurological deficits and all cranial nerve examination was normal. Patient had normal speech and he had no issues with balance, coordination, and weakness. A carotid artery ultrasound showed mild intimal thickening in bilateral carotid arteries however no significant stenosis was found. An initial 2D echo performed showed LVEF of 45-50% however it was difficult to assess wall motion secondary to suboptimal views and they suspected left ventricular apical thrombus. A repeat study ruled out LV apical thrombus. Patient's MRI confirmed hemorrhagic infarct in the left occipital lobe for which a brain and neck MR angiography was ordered. Patient had absence of the P1 and P2 segments of the left posterior cerebral artery suggesting occlusion. Franck rology advised that the stroke to be minor and does not need any intervention at the moment. They also recommended holding off aspirin or any anticoagulation in the light of increased risk of bleeding. Patient has been recovering well and reports slightly improving vision in the right eye. Cardiology recommended to start atorvastatin 40 mg daily. Patient will be discharged in a stable condition with a restriction of no driving and advised to continue all his home medications except aspirin and rosuvastatin. During hospitalization patient was also found to have UTI with E coli and was treated with a dose of ceftriaxone and cefazolin. Patient was advised to follow up with his PCP in 2-3 days, with Dr. Santo in a week, and Dr. Barbosa in 10 days. Patient was advised not to drive due to his impaired vision. Patient was advised to consult PCP or the ambulatory nurse prevent to resume his aspirin. Patient was advised to continue monitoring for worsening vision, headaches, seizures, vomiting, and balance issues and return to ED as needed. Floral Clerk(s): Dr. Santo, Neurologist Dr. Barbosa, Utility Repairer Date of Service: Jun 18, 2025 Reason for Consultation: Eval of vision loss Requesting Physician: Hospitalist HISTORY OF PRESENT ILLNESS: Mr. Taveras is a patient with a history of diabetes with neuropathy, hypertension, and dyslipidemia presenting with right-sided vision loss that began approximately one week ago. He reports that on night, while using his phone, he noticed blurriness on the right side of his visual field. He initially did not seek immediate medical attention, attributing the issue to his previous cataract surgery and lens replacement from a couple of years ago. The vision loss has been particularly noticeable while driving, with the patient describing difficulty seeing his when turning his head. This prompted him to visit an eye doctor at the [facility], where tests were conducted, and he was informed of a possible stroke. Subsequently, he was referred to the hospital for further evaluation. He denies experiencing any headaches associated with the vision loss. He also reports no history of previous strokes, atrial fibrillation, or cardiac arrhythmias. The patient's vision loss has impacted his daily functioning, particularly his ability to drive safely. Medical History - Diabetes with neuropathy - Hypertension - Dyslipidemia, controlled - Cataract surgery with lens replacement Surgical History - Cataract surgery with lens implantation, approximately two years ago Social History - Substance Use: Denies smoking and recreational drug use - Occupation: Drives occasionally (though advised against it due to vision issues) REVIEW OF SYSTEMS CONSTITUTIONAL: Denies fever, chills, or fatigue. HEAD/FACE: No signs of trauma. EENT: Positive for vision loss on the right side of visual field, blurry vision on right side. RESPIRATORY: Denies shortness of breath, cough, wheezing CARDIOVASCULAR: Denies chest pain, palpitation, syncope GASTROINTESTINAL/ABDOMINAL: Denies abdominal pain, constipation, diarrhea, nausea or vomiting GENITOURINARY: Denies dysuria or hematuria. MUSCULOSKELETAL: Denies joint pain, tenderness, or trauma. INTEGUMENTARY: Denies rash or itchiness NEUROLOGICAL/PSYCH: Negative for headaches. PAST MEDICAL HISTORY: As above PAST SURGICAL HISTORY: as above PAST SOCIAL HISTORY: no tobacco alcohol or rec drug abuse FAMILY HISTORY: none Coded Allergies: No Known Drug Allergies (Unverified Allergy, Unknown, 06/17/25) PHYSICAL EXAM EYES: Anicteric. Pupils equal and reactive. HENT: No oral thrush seen, moist Oral mucosa NECK: Supple, no JVD or thyromegaly. LUNGS: Good air entry. No rales, no rhonchi. CARDIOVASCULAR: S1, S2 regular. No murmur heard. ABDOMEN: Soft, non tender, bowel sounds present, no organomegaly CENTRAL NERVOUS SYSTEM: vision loss right side SKIN: No rashes, no swelling. LYMPHATICS: No peripheral lymphadenopathy MUSCULOSKELETAL: No joint swelling, erythema or tenderness. EXTREMITIES: No cyanosis or clubbing BACK: No deformity, no pressure ulcer. GENITOURINARY: No dysuria or hematuria Vital Sign (Last 24 Hours) 06/18/25 06/18/25 06/18/25 11:30 11:43 15:00 Temp 97.5 Pulse 54 Resp 19 B/P (MAP) 119/52 Pulse Ox 97 O2 Delivery Room Air O2 Flow Rate 0 FiO2 21 Intake & Output (last 24hrs) 06/17/25 06/17/25 06/18/25 14:59 22:59 06:59 Intake Total 500.0 ml 575.0 ml Output Total 600 ml 170 ml Balance -100.0 ml 405.0 ml LABS: Laboratory: Test 06/18/25 19:56 06/18/25 04:45 06/17/25 18:20 06/17/25 15:40 Range/Units Whole Blood Glucose 177 #H 70-110 MG/DL White Blood Count 10.5 4.8-10.8 K/uL Red Blood Count 4.99 4.50-6.20 MIL/uL Hemoglobin 14.3 14.0-18.0 g/dL Hematocrit 43.8 42-54 % Mean Corpuscular Volume 87.8 79-99 fL Mean Corpuscular Hemoglobin 28.7 27.0-33.0 pg Mean Corpuscular Hemoglobin Concent 32.6 32.0-36.0 g/dL Red Cell Distribution Width 15.2 11.0-15.5 % Platelet Count 236 130-400 K/uL Mean Platelet Volume 9.5 7.5-10.5 fL Immature Granulocyte % (Auto) 0.3 0-1 % Neutrophils (%) (Auto) 63.4 40.0-77.0 % Lymphocytes (%) (Auto) 21.9 21.0-51.0 % Monocytes (%) (Auto) 9.9 3.0-13.0 % Eosinophils (%) (Auto) 3.7 0.0-8.0 % Basophils (%) (Auto) 0.8 0.0-5.0 % Neutrophils # (Auto) 6.7 1.8-7.7 K/uL Lymphocytes # (Auto) 2.3 1.0-4.8 K/uL Monocytes # (Auto) 1.0 0.1-1.0 K/uL Eosinophils # (Auto) 0.39 0.00-0.70 K/uL Basophils # (Auto) 0.08 0.00-0.20 K/uL Absolute Immature Granulocyte (auto 0.03 0-1 K/uL Nucleated Red Blood Cells 0.0 0.0-0.19 % Prothrombin Time 12.0 H 9.6-11.6 SEC Prothromb Time International Ratio 1.15 0.85-1.15 Activated Partial Thromboplast Time 31.9 26.3-35.5 SEC Sodium Level 138 136-145 mmol/L Potassium Level 4.1 3.5-5.1 mmol/L Chloride Level 105 101-111 mmol/L Carbon Dioxide Level 27 21-32 mmol/L Blood Urea Nitrogen 22 H 7-18 mg/dL Creatinine 1.3 0.5-1.3 mg/dL Glomerular Filtration Rate Calc 56 >90 mL/min Random Glucose 96 70-105 mg/dL Hemoglobin A1c 7.7 H 4.0-6.0 % Estimated Average Glucose (eAG) 174 H 70-126 mg/dL Total Calcium 9.3 8.5-10.1 mg/dL Phosphorus Level 3.4 2.5-4.9 mg/dL Magnesium Level 2.20 1.80-2.40 mg/dL Urine Color LIGHT-YELLOW YELLOW Urine Appearance CLEAR CLEAR Urine pH 5.5 5.0-8.0 Urine Specific [place] 1.017 1.001-1.031 Urine Protein 10 H NEGATIVE mg/dL Urine Glucose (UA) >=1000 H NEGATIVE mg/dL Urine Ketones NEGATIVE NEGATIVE mg/dL Urine Occult Blood NEGATIVE NEGATIVE Urine Nitrate NEGATIVE NEGATIVE Urine Bilirubin NEGATIVE NEGATIVE mg/dL Urine Urobilinogen 0.2 0.2-1.0 mg/dL Urine Leukocyte Esterase 75 H NEGATIVE Terence/uL Urine RBC 2-5 H 0-1 /HPF Urine WBC 11-25 H 0-1 /HPF Urine Squamous Epithelial Cells RARE 0-2 /HPF Urine Bacteria FEW None Seen /HPF Total Creatine Kinase 128 21-232 U/L Troponin I High Sensitivity 26 4-75 ng/L LDL Cholesterol 59 0-99 mg/dL DIAGNOSTICS / RADIOLOGY: MRI brain left occipital ischemic stroke w/ hemorrhage ASSESSMENT / PLAN: Mr. Taveras is a patient with a history of diabetes, neuropathy, hypertension, and dyslipidemia presenting with right-sided vision loss that started approximately one week ago. Acute ischemic stroke with hemorrhagic transformation Assessment: Mr. Taveras experienced sudden onset of right-sided vision loss approximately one week ago. Initial ophthalmologic evaluation at the [facility] suggested a stroke, prompting referral to the hospital. Imaging studies (CT and MRI) reveal an ischemic stroke in the posterior left hemisphere that has undergone hemorrhagic transformation. The location and nature of the stroke are consistent with the patient's visual field deficits. Risk factors for stroke include the patient's history of diabetes, hypertension, dyslipidemia, and obesity. The stroke is believed to be embolic in origin, with possible sources including atherosclerotic plaques in the posterior cerebral circulation or a cardiac source. Plan: - Avoid anticoagulation or antiplatelet therapy at this time. - Obtain MRA head and neck - Review recent echocardiogram results (showing mildly dilated left ventricle and reduced ejection fraction of 45-50%) - Consult cardiology for loop recorder placement - Advise patient not to drive due to profound right-sided visual field defect - Educate patient on compensatory strategies for visual field loss Cardiovascular risk factors Assessment: Mr. Taveras has multiple cardiovascular risk factors, including diabetes, hypertension, dyslipidemia, and obesity. These conditions likely contributed to the development of his stroke. Recent echocardiogram shows evidence of cardiac dysfunction with a mildly dilated left ventricle and reduced ejection fraction (45-50%), which may increase the risk of cardioembolic events. Plan: - Continue current management of diabetes, hypertension, and dyslipidemia - Emphasize importance of risk factor modification and medication adherence - Monitor renal function (most recent creatinine 1.3, GFR 56) Thank you for your consultation. NOAH IBARRA MD Jun 18, 2025 21:50 Electronically Signed by: NOAH IBARRA MD06/18/25 2150 Electronically Co-Signed by: Cardiology consultation note dictated for Naomie Barbosa MD Date Patient Seen: Jun 19, 2025 Requesting Physician: MORRIS Denson Reason for Consultation: Moderate History of Present Illness: This is an 79-year-old male with a past medical history of hypertension, hyperlipidemia, type 2 diabetes mellitus, CKD stage 3A, neuropathy, and BPH who presented to the ED with complaints loss of right eye peripheral vision for approximately 5 days. MRI of the brain on 06/18/2025 demonstrated an acute hemorrhagic left occipital lobe infarct. Bilateral carotid ultrasound on 06/18/2025 demonstrated bilateral bulbs with 20-30% diameter stenosis. The patient is currently undergoing an MRA of the brain and carotids today. Cardiology has been consulted for moderate aortic stenosis. 2D echo on 06/18/2025 demonstrated an LVEF of 45-50%, stage II diastolic dysfunction, cannot rule out left ventricular apical thrombus, moderate aortic valve stenosis, AV mean of 25 mmHg, AV peak of 39 mmHg, and ANILA of 0.9cm2. Echo with definity contrast is pending. Past Medical History: As per HPI and summarized below Past Surgical History: Cataract surgery Hernia repair Appendectomy Family History: Noncontributory Social History: The patient lives with his . Habits: Per medical record, the patient denied alcohol, tobacco, or illicit drug use. Home Meds: Aspirin 81 mg daily Rosuvastatin 5 mg nightly Amlodipine 5 mg daily Lisinopril 40 mg daily Jardiance 25 mg daily Kerendia 10 mg daily Flomax 0.4 mg q.h.s. Glipizide 10 mg b.i.d. Ozempic 1 mg subQ weekly Current Meds: Medications Dose Ordered Sig/Ra Start Time Stop Time Status Last Admin Acetaminophen 650 mg Q6H PRN 06/17/25 19:30 07/17/25 19:29 Hydralazine HCl 10 mg Q6H PRN 06/17/25 19:30 07/17/25 19:29 Ondansetron HCl 4 mg Q6H PRN 06/17/25 19:30 07/17/25 19:29 Insulin Human Regular INSULIN SLIDING SCAL... ACHS 06/17/25 21:00 07/17/25 20:59 06/18/25 20:10 Atorvastatin Calcium 40 mg HS 06/17/25 21:00 07/17/25 20:59 06/18/25 20:09 Pantoprazole Sodium 40 mg DAILY 06/18/25 09:00 07/18/25 08:59 06/19/25 09:20 Diphenhydramine HCl 12.5 mg ONCE PRN 06/18/25 09:30 07/18/25 09:29 06/19/25 09:20 Amlodipine Besylate 5 mg DAILY 06/19/25 09:00 07/19/25 08:59 06/19/25 09:19 Lisinopril 40 mg DAILY 06/19/25 09:00 07/19/25 08:59 06/19/25 09:19 Tamsulosin HCl 0.4 mg HS 06/18/25 21:00 07/18/25 20:59 06/18/25 20:09 Ceftriaxone Sodium 2 gm Q24H 06/18/25 19:30 06/28/25 19:29 06/18/25 20:09 Polyethylene Glycol 17 gm DAILY 06/19/25 09:00 07/19/25 08:59 06/19/25 09:20 Sodium Chloride 1,000 ml @ 50 mls/hr Q20H 06/19/25 09:30 07/19/25 09:29 06/19/25 09:19 Review of Systems: Unable to obtain a review of systems as the patient is out of room. Physical Examination: GENERAL: [No acute distress.] HEAD: [Normal with no signs of head trauma.] EYES: [PERRLA, EOMI, conjunctiva and sclera normal.] ENT: [Hearing grossly intact, normal oropharynx.] NECK: [Supple without JVD. There is no tenderness, lymphadenopathy, or masses. No thyromegaly. Normal carotid upstrokes without bruits.] LUNGS: [Clear breath sounds bilaterally. No wheezes, or rhonchi.] HEART: [Normal rate and rhythm. Normal S1 and S2 without murmurs, gallop or rub.] VASC: [Peripheral pulses +2 bilaterally.] ABD: [Bowel sounds normal, soft, nontender, no masses, no organomegaly. No audible bruits.] : [Not examined] LYMPH: [No lymphadenopathy noted.] EXT: [No clubbing, cyanosis or edema.] SKIN: [No rashes or lesions noted.] NEURO: [Awake, alert, and oriented x3. No focal sensory or strength deficits noted.] Vital Signs (last 8hr) Date Time Temp Pulse Resp B/P (MAP) Pulse Ox O2 Delivery O2 Flow Rate FiO2 06/19/25 04:00 98.1 06/19/25 03:41 58 13 143/69 99 06/19/25 03:26 60 17 135/71 99 06/19/25 03:13 62 17 128/58 100 Laboratory: Hematology Labs: Test 06/19/25 03:33 Range/Units White Blood Count 10.3 4.8-10.8 K/uL Red Blood Count 4.84 4.50-6.20 MIL/uL Hemoglobin 13.9 L 14.0-18.0 g/dL Hematocrit 43.0 42-54 % Mean Corpuscular Volume 88.8 79-99 fL Mean Corpuscular Hemoglobin 28.7 27.0-33.0 pg Mean Corpuscular Hemoglobin Concent 32.3 32.0-36.0 g/dL Red Cell Distribution Width 15.0 11.0-15.5 % Platelet Count 237 130-400 K/uL Mean Platelet Volume 9.5 7.5-10.5 fL Immature Granulocyte % (Auto) 0.4 0-1 % Neutrophils (%) (Auto) 68.8 40.0-77.0 % Lymphocytes (%) (Auto) 16.1 L 21.0-51.0 % Monocytes (%) (Auto) 8.3 3.0-13.0 % Eosinophils (%) (Auto) 5.4 0.0-8.0 % Basophils (%) (Auto) 1.0 0.0-5.0 % Neutrophils # (Auto) 7.1 1.8-7.7 K/uL Lymphocytes # (Auto) 1.7 1.0-4.8 K/uL Monocytes # (Auto) 0.9 0.1-1.0 K/uL Eosinophils # (Auto) 0.56 0.00-0.70 K/uL Basophils # (Auto) 0.10 0.00-0.20 K/uL Absolute Immature Granulocyte (auto 0.04 0-1 K/uL Nucleated Red Blood Cells 0.0 0.0-0.19 % Chemistry Labs: Test 06/19/25 06:58 06/19/25 03:33 06/18/25 04:45 06/17/25 15:40 Range/Units Whole Blood Glucose 117 H 70-110 MG/DL Sodium Level 136 136-145 mmol/L Potassium Level 4.2 3.5-5.1 mmol/L Chloride Level 103 101-111 mmol/L Carbon Dioxide Level 28 21-32 mmol/L Blood Urea Nitrogen 22 H 7-18 mg/dL Creatinine 1.5 H 0.5-1.3 mg/dL Glomerular Filtration Rate Calc 47 >90 mL/min Random Glucose 149 #H 70-105 mg/dL Total Calcium 8.5 8.5-10.1 mg/dL Hemoglobin A1c 7.7 H 4.0-6.0 % Estimated Average Glucose (eAG) 174 H 70-126 mg/dL Phosphorus Level 3.4 2.5-4.9 mg/dL Magnesium Level 2.20 1.80-2.40 mg/dL Total Creatine Kinase 128 21-232 U/L Troponin I High Sensitivity 26 4-75 ng/L LDL Cholesterol 59 0-99 mg/dL Coagulation Labs: Test 06/18/25 04:45 Range/Units Prothrombin Time 12.0 H 9.6-11.6 SEC Prothromb Time International Ratio 1.15 0.85-1.15 Activated Partial Thromboplast Time 31.9 26.3-35.5 SEC Diagnostics / Radiology: 2D echocardiogram on 06/18/2025 Conclusion LVEF is 45-50%. DIFFICULT TO ASSESS WALL MOTION SECONDARY TO SUBOPTIMAL VIEWS OBTAINED Cannot rule out left ventricular apical thrombus. CONSIDER REPEAT STUDY WITH CONTRAST AGENT There is moderate valvular aortic stenosis. Highest mean aortic valve gradient is 25mmHg, highest pk 39gradient. Calculated ANILA 0.9cm2. Impression and Plan: Acute hemorrhagic left occipital lobe infarct Moderate to severe aortic stenosis Nonobstructive bilateral carotid artery disease via Doppler on 06/18/2025 Hypertension Hyperlipidemia Type 2 diabetes mellitus CKD stage IIIA Neuropathy BPH Moderate to severe aortic stenosis with a 39 mm peak gradient 25 mm mean gradient and valve area of2 0.9 cm2. 2D echo on 06/18/2025 demonstrated an LVEF of 45-50%, stage II diastolic dysfunction, cannot rule out left ventricular apical thrombus, moderate aortic valve stenosis, AV mean of 25 mmHg, AV peak of 39 mmHg, and ANILA of 0.9cm2 -No intervention planned due to acute hemorrhagic stroke -Continue Aspirin 81 mg daily, Atorvastatin 40mg qhs, Amlodipine 5 mg daily, and Lisinopril 40 mg daily. -Plan to continue Jardiance 25 mg daily and Kerendia 10 mg daily upon discharge. -no LV thrombus noted with contrast echo -Follow-up with Dr. Vicki Nolan is 7-10d after discharge ATTESTATION BY PHYSICIAN I have seen and examined the patient. I reviewed the documentation, medical decision making, and treatment plan as noted by the mid-level provider above. I agree with the findings and plan of care. NAOMIE BARBOSA MD, VALERIE L FNP Jun 19, 2025 10:23 NAOMIE BARBOSA MD Jun 19, 2025 10:43 Electronically Signed by: STEVE RAMIREZ06/19/25 1023 Electronically Co-Signed by: NAOMIE BARBOSA MD06/19/25 1043 Procedure(s): PATIENT: SHELBY TAVERAS MR#: [id number] : 1945 SEX: M AGE: 79 LOCATION: [facility] ORDER [id number] STATUS: [facility] REPORT#: [id number] SERVICE 1533 REASON: right eye peripheral vision decreased ORDERING PHYSICIAN: JERRY ADAME MD PROCEDURE: HEAD WO - CT HEAD/BRAIN W/O CONTRAST ADDENDUM REPORT ADDENDUM: Findings discussed with Dr. Crystal Barakat at 5:15 PM CDT on 06/17/25 /[place] ADDENDUM: Results were shared by telephone at 18:09 pm on 06/17/[address]Reyna Barakat. /[place] EXAM: CT Head Without Intravenous Contrast. CLINICAL HISTORY: 79-year-old male with right eye peripheral vision decreased. TECHNIQUE: Axial computed tomography images of the head/brain without intravenous contrast. Dose reduction technique was used including one or more of the following: automated exposure control, adjustment of mA and kV according to patient size, and/or iterative reconstruction. CONTRAST: NONE COMPARISON: None. FINDINGS: BRAIN: Moderate atrophy. Moderate chronic ischemic changes. There is increased density in the left occipital lobe, image number 15 of 31, with some surrounding low density, possibly representing a hemorrhagic infarct, and subarachnoid hemorrhage cannot be excluded within this area. VENTRICLES: No hydrocephalus. ORBITS: The orbits are unremarkable. SINUSES AND MASTOIDS: The paranasal sinuses and mastoid air cells are clear. SOFT TISSUES: No significant facial or scalp soft tissue swelling evident. No radiopaque foreign body is seen. BONES: No acute skull fracture. IMPRESSION: 1. Possible hemorrhagic infarct in the left occipital lobe with surrounding low density. Subarachnoid hemorrhage cannot be excluded within this area. 2. Moderate atrophy and moderate chronic ischemic changes. /[place] DICTATED BY: CARMENCITA SOSA MD DATE: 06/17/251814 ELECTRONICALLY SIGNED BY: DATE: EXAM: CT Head Without Intravenous Contrast. CLINICAL HISTORY: 79-year-old male with right eye peripheral vision decreased. TECHNIQUE: Axial computed tomography images of the head/brain without intravenous contrast. Dose reduction technique was used including one or more of the following: automated exposure control, adjustment of mA and kV according to patient size, and/or iterative reconstruction. CONTRAST: NONE COMPARISON: None. FINDINGS: BRAIN: Moderate atrophy. Moderate chronic ischemic changes. There is increased density in the left occipital lobe, image number 15 of 31, with some surrounding low density, possibly representing a hemorrhagic infarct, and subarachnoid hemorrhage cannot be excluded within this area. VENTRICLES: No hydrocephalus. ORBITS: The orbits are unremarkable. SINUSES AND MASTOIDS: The paranasal sinuses and mastoid air cells are clear. SOFT TISSUES: No significant facial or scalp soft tissue swelling evident. No radiopaque foreign body is seen. BONES: No acute skull fracture. IMPRESSION: 1. Possible hemorrhagic infarct in the left occipital lobe with surrounding low density. Subarachnoid hemorrhage cannot be excluded within this area. 2. Moderate atrophy and moderate chronic ischemic changes. /[place] DICTATED BY: CARMENCITA SOSA MD DATE: 06/17/25 1800 ELECTRONICALLY SIGNED BY: CARMENCITA SOSA MD DATE: 06/17/25 1800 PATIENT: SHELBY TAVERAS MR#: [id number] : 1945 SEX: M AGE: 79 LOCATION: [facility] ORDER [id number] STATUS: ADM IN REPORT#: [id number] SERVICE 0914 REASON: CVA ORDERING PHYSICIAN: AIYANA KAUR PROCEDURE: BRAIN WO - MR BRAIN WO CON EXAM: MR Brain without Intravenous Contrast. CLINICAL HISTORY: CVA TECHNIQUE: Multisequence, multiplanar magnetic resonance images acquired of the brain without intravenous contrast. COMPARISON: CT images from June 17, 2025 FINDINGS: BRAIN: No midline shift or extra-axial fluid collection. No cerebellar tonsillar ectopia. No abnormal enhancement. Altered signal intensity area in the left occipital lobe, showing restriction on DWI images, and blooming on SWI images, appear heterogeneous hyperintense on both T1 and T2Wt images, hyperintense on FLAIR. Mild generalized cerebral atrophy. Chronic white matter ischemic changes. VENTRICLES: No hydrocephalus. ORBITS: The orbits are normal. SINUSES AND MASTOIDS: Minimal fluid in the left mastoid air cells. Mild mucosal thickening in all paranasal sinuses BONES: No acute fracture or aggressively appearing osseous lesion. IMPRESSION: 1. Acute hemorrhagic left occipital lobe infarct. Allowing for the limitations of cross modality comparison, the occipital lobe hemorrhage appears relatively unchanged. /[place] DICTATED BY: BONITA PASCAL Jr., MD DATE: 06/18/251503 ELECTRONICALLY SIGNED BY: BONITA PASCAL Jr., MD DATE: 06/18/25 150 PATIENT: SHELBY TAVERAS MR#: [id number] : 1945 SEX: M AGE: 79 LOCATION: [facility] ORDER 1342 STATUS: ADM IN REPORT#: [id number] SERVICE 1337 REASON: Hemorrhagic Stroke in left occipital area ORDERING PHYSICIAN: EDDI RICKS MD PROCEDURE: ECHO CMP - ECHO 2-D COMPLETE APPROVED REPORT EXAM: Two-dimensional and M-mode echocardiogram with Doppler and color Doppler. INDICATION ICD: Hemorrhagic Stroke in left occipital area 2D Dimensions RVDd 3.7 cm LVEF(%) 47.5 (>50%) LVED Vol(simp.) 99.4 mL IVSd 1.1 (0.7-1.1cm) FS(%) 23 % LVES Vol(simp.) 50.5 mL LVDd 3.9 (3.8-5.6cm) LA (2D) 4.3 (1.6-4.0cm) LVEF(%, simp.) 49 % PWd 1.1 (0.7-1.1cm) Ao Root(2D) 2.8 (2.0-3.7cm) LA ESV INDEX (BP) 35.82 mL/m2 LVDs 3.0 (2.5-4.0cm) LVOT diam 1.9 (1.8-2.4cm) IVC diam 1.6 cm Deformation Strain Apical 4 -17.9 % Apical 2 -17.1 % Apical 3 -18.3 % Global Strain -17.8 % M-Mode Dimensions EPSS 1.4 cm LA (MM) 4.5 (1.6-4.0cm) Ao Root(MM) 2.9 (2.0-3.7cm) Aortic Valve AoV Vmax 3.0 m/s Ao Peak GR 35.6 mmHg LVOT Vmax 0.8 m/s AoV VTI 0.7 m Ao Mean GR 20.7 mmHg LVOT VTI 0.22 m ANILA (VMAX) 0.74 cm2 Al P1/2T 2486 ms ANILA (VTI) 0.8 cm2 Mitral Valve MV E Vmax 93.5 cm/s DECEL Time 272 ms MV A Vmax 115.1 cm/s P 1/2 T 88 ms E/A ratio 0.8 MVA (PHT) 2.5 cm2 TDI E/E' Medial 19.2 E/E' Lateral 16.0 Medial E' Peak V 4.88 cm/s Lateral E' Peak V 5.84 cm/s Pulmonary Valve PV Vmax 1.3 m/s PV VTI 0.29 m PV Mean GR 3.8 mmHg PV Peak GR 6.9 mmHg Left Ventricle The left ventricle is normal size. DIFFICULT TO ASSESS WALL MOTION SECONDARY TO SUBOPTIMAL VIEWS OBTAINED There is normal left ventricular wall thickness. LVEF is 45-50%. Cannot rule out left ventricular apical thrombus. CONSIDER REPEAT STUDY WITH CONTRAST AGENT Stage II diastolic dysfunction. Right Ventricle The right ventricle is normal size. The right ventricular systolic function is normal. Atria The left atrium is mildly dilated. The right atrium size is normal. Aortic Valve The aortic valve is calcified and displays decreased opening. Trace aortic regurgitation. There is moderate valvular aortic stenosis. Highest mean aortic valve gradient is 25mmHg, highest pk 39gradient. Calculated ANILA 0.9cm2. Mitral Valve Mitral valve leaflets open well. Mitral valve leaflets are mildly calcified. There is no mitral valve regurgitation noted. There is no mitral valve stenosis. Tricuspid Valve The tricuspid valve is normal in structure. There is no tricuspid valve regurgitation noted. Pulmonic Valve The pulmonary valve is normal in structure. There is no pulmonic valvular regurgitation. Great Vessels The aortic root is normal in size. The IVC is normal in size. Pericardium There is no pericardial effusion. Conclusion LVEF is 45-50%. DIFFICULT TO ASSESS WALL MOTION SECONDARY TO SUBOPTIMAL VIEWS OBTAINED Cannot rule out left ventricular apical thrombus. CONSIDER REPEAT STUDY WITH CONTRAST AGENT There is moderate valvular aortic stenosis. Highest mean aortic valve gradient is 25mmHg, highest pk 39gradient. Calculated ANILA 0.9cm2. DICTATED BY: NENA DAVIS MD DATE: 06/18/251454 ELECTRONICALLY SIGNED BY: NENA DAVIS MD DATE: 06/18/25 1539 PATIENT: SHELBY TAVERAS MR#: [id number] : 1945 SEX: M AGE: 79 LOCATION: [facility] ORDER 54 STATUS: ADM IN REPORT#: [id number] SERVICE 53 REASON: rule out carotid stenosis ORDERING PHYSICIAN: AIYANA KAUR PROCEDURE: CAROTID - US CAROTID DUPLEX EXAMINATION: DUPLEX ULTRASOUND EXAMINATION OF THE BILATERAL CAROTID AND VERTEBRAL ARTERIES. CLINICAL HISTORY: To rule out carotid stenosis. COMPARISON: None provided. TECHNIQUE: Real-time ultrasound scan of the bilateral carotid and vertebral arteries, 2-D grayscale, with color Doppler flow and spectral waveform analysis. FINDINGS: Color and spectral Doppler interrogation of the carotid vessels on the right demonstrate peak systolic velocities as follows: CCA (Proximal and distal): 46 and 45 cm/s respectively. Bulb: 47 cm/s. ECA: 57 cm/s. ICA (Proximal, mid, and distal): 47, 55, and 49 cm/s respectively. Vertebral artery demonstrates antegrade flow: 38 cm/s. Right ICA/CCA ratio: 1.2 Peak systolic velocities on the left are as follows: CCA (Proximal and distal): 46 and 41 cm/s respectively. Bulb: 40 cm/s. ECA: 59 cm/s. ICA (Proximal, mid, and distal): 46, 53, and 49 cm/s respectively. Vertebral artery demonstrates antegrade flow: 35 cm/s. Left ICA/CCA ratio: 1.3 Both the common carotid arteries and their branches reveal mild intimal thickening. There are calcified plaques in the bilateral bulb causing about 20% to 30% diameter stenosis. IMPRESSION: Mild intimal thickening in the bilateral carotid arteries and their branches. Calcified plaques in the bilateral bulb causing about 20% to 30% diameter stenosis. There is no significant flow limiting lesions in the remainder of the arteries. /[place] DICTATED BY: JENNIFER ONEIL MD DATE: 06/19/2550 ELECTRONICALLY SIGNED BY: JENNIFER ONEIL MD DATE: 06/19/2550 PATIENT: SHELBY TAVERAS MR#: [id number] : 1945 SEX: M AGE: 79 LOCATION: [facility] ORDER 1626 STATUS: ADM IN REPORT#: [id number] SERVICE 0637 REASON: RULE OUT LEFT VENTRICULAR APICAL THROMBUS ORDERING PHYSICIAN: NENA DAVIS MD PROCEDURE: ECHO FU LD - ECHO 2-D F/U-LTD APPROVED REPORT EXAM: Limited two-dimensional echocardiogram with contrast INDICATION ICD: Rule out ventricular apical thrombus Contrast Details Indication: Rule out thrombus Agent/Amount Used: Optison 2mL 2D Dimensions RVDd 3.7 cm LVED Vol(simp.) 137.9 mL LVES Vol(simp.) 55.4 mL LVEF(%, simp.) 60 % Left Ventricle The left ventricle is normal size. There is normal left ventricular wall thickness. LVEF is 60-65%. No left ventricle thrombus noted on this study with contrast. Indeterminate diastolic dysfunction. Right Ventricle The right ventricle is normal size. The right ventricular systolic function is normal. Atria The left atrium size is normal. The right atrium size is normal. Aortic Valve The aortic valve is not assessed. Mitral Valve The mitral valve is not assessed. Tricuspid Valve The tricuspid valve is not assessed. Great Vessels IVC is not visualized. Pericardium There is no pericardial effusion. Other Information Quality : Adequate, Limited/Follow-up Conclusion LVEF is 60-65%. No left ventricle thrombus noted on this study with contrast. DICTATED BY: NAOMIE BARBOSA MD DATE: 06/19/25 0707 ELECTRONICALLY SIGNED BY: NAOMIE BARBOSA MD DATE: 06/19/25 1108 PATIENT: SHELBY TAVERAS MR#: [id number] : 1945 SEX: M AGE: 79 LOCATION: [facility] ORDER 0811 STATUS: ADM IN REPORT#: [id number] SERVICE 0805 REASON: stroke ORDERING PHYSICIAN: NOAH IBARRA MD PROCEDURE: COW - MRA COW/BRAIN-NATIVE OF SCHULTE EXAM: MR Angiography Head without Intravenous Contrast. CLINICAL HISTORY: Stroke. TECHNIQUE: Magnetic resonance angiography images of the head without intravenous contrast. Three-dimensional MIP reformations performed. CONTRAST: Without. COMPARISON: CT Head 06/17/2025. FINDINGS: INTERNAL CAROTID ARTERIES: No significant stenosis. No aneurysm or AVM. ANTERIOR CEREBRAL ARTERIES: No significant stenosis. No aneurysm or AVM. MIDDLE CEREBRAL ARTERIES: No significant stenosis. No aneurysm or AVM. 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 BASILAR ARTERY: No significant stenosis. No aneurysm or AVM. VERTEBRAL ARTERIES: No significant stenosis. No aneurysm or AVM. There is a subacute hemorrhagic infarct in the left occipital lobe. Please see prior CT brain from 06/17/2025. IMPRESSION: 1. 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 2. 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 /[place] DICTATED BY: CARMENCITA SOSA MD DATE: 06/19/251503 ELECTRONICALLY SIGNED BY: CARMENCITA SOSA MD DATE: 06/19/251503 PATIENT: SHELBY TAVERAS MR#: [id number] : 1945 SEX: M AGE: 79 LOCATION: [facility] ORDER 09 STATUS: ADM IN REPORT#: [id number] SERVICE 0903 REASON: CVA ORDERING PHYSICIAN: NOAH IBARRA MD PROCEDURE: CAROTID WO - MRA CAROTIDS WO Preface MRA Carotid arteries TECHNIQUE: 3 - SAG 2D PC LOC - TR: 33.0 - TE: 6.0 - ET: 1.0 - Thk: 60.0 4 - SAG 2D PC LOC - TR: 33.0 - TE: 6.0 - ET: 1.0 - Thk: 60.0 5 - 3D TOF 6 SLAB - TR: 18.0 - TE: 2.7 - ET: 1.0 - Thk: 3.0 300 - COL:SAG 2D PC LOC - TR: 33.0 - TE: 6.0 - ET: 1.0 - Thk: 60.0 400 - COL:SAG 2D PC LOC - TR: 33.0 - TE: 6.0 - ET: 1.0 - Thk: 60.0 500 - COL:3D TOF 6 SLAB - TR: 18.0 - TE: 2.7 - ET: 1.0 - Thk: 3.0 501 - PJN:3D TOF 6 SLAB - TR: 18.0 - TE: 2.7 - ET: 1.0 - Thk: 3.0 502 - BILAT ROT - TR: 18.0 - TE: 2.7 - ET: 1.0 - Thk: 3.0 503 - R ROT - TR: 18.0 - TE: 2.7 - ET: 1.0 - Thk: 3.0 504 - L ROT - TR: 18.0 - TE: 2.7 - ET: 1.0 - Thk: 3.0 Contrast: None. Reformations: None. Findings: Aortic Arch The aortic arch is normal in calibers and contours. There is no evidence of aneurysm or stenosis. The arch vessel orifices are Widely patent. Innominate system The innominate artery is widely patent, without irregularity or stenosis. The origin of the right common carotid artery is widely patent, without stenosis. The right common carotid artery is normal along its entire length, without evidence of narrowing. Right common carotid system The right carotid bifurcation is widely patent, without stenosis. The right internal carotid artery is normal in calibers and contours to the skull base. The right external carotid artery and its branches are normal in calibers and contours. Right subclavian system The right subclavian artery is normal in calibers and contours. The right vertebral artery is patent, without evidence of stenosis. Left common carotid system The left carotid bifurcation is widely patent, without stenosis. The left internal carotid artery is normal in calibers and contours to the Skull base. The left external carotid artery and its branches are normal in calibers and contours. Left subclavian system The left subclavian artery is normal in calibers and contours. The left vertebral artery is normal in calibers and contours as well. The basilar artery is normal in calibers and contours, without evidence of stenosis. 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 Santo, Dr. Barbosa FOLLOW UP APPOINTMENT(S) : f/u with PCP in one 2-3 days, f/u with Dr. Santo in one week, Dr. Barbosa in 10 days PROCEDURES: None IMAGING (S) : report attached to summary MICROBIOLOGY : report attached to summary ACTIVITY : NO DRIVING HOME MEDICATIONS : Continued Home Medications: Active Scripts Atorvastatin Calcium (Atorvastatin Calcium) 40 Mg Tablet, 1 TAB PO DAILY for 30 Days, #30 TAB 0 Refills Prov:BOB ZAMORA MD 06/20/25 Reported Medications Semaglutide (Ozempic) 1 Mg/0.75 Ml (4 Mg/3 Ml) Pen.injctr, 1 MG SQ QWEEK for 30 Days, #3 ML 0 Refills 06/17/25 Finerenone (Kerendia) 10 Mg Tablet, 1 TAB PO DAILY for 30 Days, #30 TAB 0 Refills 06/17/25 Empagliflozin (Jardiance) 25 Mg Tablet, 1 TAB PO DAILY for 30 Days, #30 TAB 0 Refills 06/17/25 Tamsulosin HCl (Flomax) 0.4 Mg Cap.er.24h, 0.4 MG PO HS 06/17/25 Amlodipine Besylate (Amlodipine Besylate) 5 Mg Tablet, 1 TAB PO DAILY 06/17/25 Glipizide (Glipizide) 10 Mg Tablet, 1 TAB PO BID 06/17/25 Lisinopril (Lisinopril) 40 Mg Tablet, 1 TAB PO DAILY 06/17/25 Discontinued Reported Medications Aspirin (Aspirin) 81 Mg Tab.chew, 1 TAB PO DAILY for 30 Days, #30 TAB 0 Refills 06/17/25 Rosuvastatin Calcium (Rosuvastatin Calcium) 5 Mg Tablet, 1 TAB PO HS 06/17/25 New Medications: Atorvastatin Calcium (Atorvastatin Calcium) 40 Mg Tablet 1 TAB PO DAILY for 30 Days, #30 TAB 0 Refills Continued Medications: Amlodipine Besylate (Amlodipine Besylate) 5 Mg Tablet 1 TAB PO DAILY Empagliflozin (Jardiance) 25 Mg Tablet 1 TAB PO DAILY for 30 Days, #30 TAB 0 Refills Finerenone (Kerendia) 10 Mg Tablet 1 TAB PO DAILY for 30 Days, #30 TAB 0 Refills Glipizide (Glipizide) 10 Mg Tablet 1 TAB PO BID Lisinopril (Lisinopril) 40 Mg Tablet 1 TAB PO DAILY Semaglutide (Ozempic) 1 Mg/0.75 Ml (4 Mg/3 Ml) Pen.injctr 1 MG SQ QWEEK for 30 Days, #3 ML 0 Refills Tamsulosin HCl (Flomax) 0.4 Mg Cap.er.24h 0.4 MG PO HS Discontinued Medications: Aspirin (Aspirin) 81 Mg Tab.chew 1 TAB PO DAILY for 30 Days, #30 TAB 0 Refills Rosuvastatin Calcium (Rosuvastatin Calcium) 5 Mg Tablet 1 TAB PO HS Time spent arranging discharge: 1-30 minutes ATTESTATION BY PHYSICIAN I have seen and examined the patient. I reviewed the documentation, medical decision making, and treatment plan as noted by the resident provider above. I agree with the findings and plan of care. Zay Umanzor MD, HARSHAVARDHA MD Jun 20, 2025 14:21
[2025-06-20] MEDS ORDERED: ATOR40TA71 PO (14:39)
[2025-06-20 16:00] VITALS: BP 120/75; PULSE 65; RESP 20; TEMP 97.9
--- NOTE | 2025-06-20 17:45 | NUR ---
NOTE DISCHARGE INSTRUCTIONS GIVEN TO PATIENT AND SPOUSE, BOTH STATED UNDERSTANDING. ALL QUESTIONS ANSWERED.
--- NOTE | 2025-06-20 19:27 | PN ---
[facility] PROGRESS NOTE Date Patient Seen: Jun 20, 2025 Time of Visit: 19:21 Supervising Physician: Alvino Hoffman MD Primary Care Physician: self referral Outpatient Specialists: Inpatient Consults: Dr Santo, Dr Brooks, Dr Gutierrez, Dr Streeter Admitting: Armando Mercado MD PROBLEM LIST: Acute ischemic stroke with hemorrhagic transformation POA Rt eye Loss of peripheral vision CKD stage IIIA, POA Moderate to severe aortic stenosis with a 39 mm peak gradient 25 mm mean gradient and valve area of2 0.9 cm2. Acute Cystitis, POA Hyperglycemia in the presence of T2DM POA A1C 7.7 Essential Hypertension Hyperlipidemia Obesity BMI 30.2 Claustrophobia INTERVAL HISTORY: No major overnight events. He is awake alert and oriented x3. Patient is hemodynamically stable in no apparent distress. Patient has been seen by Neurology and cleared to follow up in one week as outpatient. Creatinine is baseline at 1.4 GFR of 51. Otherwise labs are unremarkable. He h as remained afebrile and hemodynamically stable. Disposition per primary team On behalf of [facility] thank you for given us the opportunity to participate in the care of this patient. From pulmonary standpoint patient is stable at this time. We will sign off. Please reach to us should the need arise. On behalf of [facility] we are thankful for your team to let us participate in the care of this patient. We will be available if assistance in pulmonary critical care needed. REVIEW OF SYSTEMS: Const: no fever, fatigue, or weight changes Eyes:+ RT eye peripheral vision loss ENT: No congestion, ear pain, or sore throat C/V: no chest pain, palpitations or edema Resp: No cough, congestion, wheezing , or Shortness of breath GI: No abdominal pain, nausea, vomiting, constipation, or diarrhea : No incontinence of or dyuria M/S: No joint or pain swelling Skin: No rash Neuro: no headache, focal numbness, or weakness, dizziness or seizures Psych: no depression or anxiety Heme: no abnormal bruising or bleeding Lymph: no swollen glands PHYSICAL EXAM: GENERAL: alert, weak, awake oriented x 3 HEENT: EOMI, Sclera non icteric, moist mucosa NECK: Supple, no JVD, trachea midline LUNGS: Clear breath sounds bilaterally. No wheezes HEART: Regular rate and rhythm. Normal S1 and S2, without murmurs ABD: Abdomen soft, nontender. Bowel sounds present EXT: No clubbing cyanosis or edema NEURO: Alert and oriented to person, follows commands NIH stroke scale : 1A: Level of consciousness: 0] 1B: Ask months and age: [0 1C: Blinks eyes and squeezes hand: 0 2: Horizontal extraocular movements: 1 3. : Visual tellez: 1 4.: Facial palsy: 0 5A: Left arm motor drift: 0 5 B: Right arm motor drift: 0 6A: Left leg motor drift: 0 6 B: Right leg motor drift: 0 7.: Limb ataxia: 0 8.: Sensation: 0 9.: Language aphasia: 0 10.: Dysarthria 0 11.: Extension/inattention:0 Score of 2 Vital Signs (last 8hr) Date Time Temp Pulse Resp B/P (MAP) Pulse Ox O2 Delivery O2 Flow Rate FiO2 06/20/25 16:00 97.9 65 20 120/75 98 Room Air 06/20/25 12:00 98.8 83 20 135/70 96 Room Air LABS: Hematology Labs: Test 06/20/25 04:19 Range/Units White Blood Count 10.4 4.8-10.8 K/uL Red Blood Count 4.84 4.50-6.20 MIL/uL Hemoglobin 13.9 L 14.0-18.0 g/dL Hematocrit 43.0 42-54 % Mean Corpuscular Volume 88.8 79-99 fL Mean Corpuscular Hemoglobin 28.7 27.0-33.0 pg Mean Corpuscular Hemoglobin Concent 32.3 32.0-36.0 g/dL Red Cell Distribution Width 14.9 11.0-15.5 % Platelet Count 222 130-400 K/uL Mean Platelet Volume 9.6 7.5-10.5 fL Immature Granulocyte % (Auto) 0.3 0-1 % Neutrophils (%) (Auto) 67.5 40.0-77.0 % Lymphocytes (%) (Auto) 14.8 L 21.0-51.0 % Monocytes (%) (Auto) 10.8 3.0-13.0 % Eosinophils (%) (Auto) 5.7 0.0-8.0 % Basophils (%) (Auto) 0.9 0.0-5.0 % Neutrophils # (Auto) 7.0 1.8-7.7 K/uL Lymphocytes # (Auto) 1.5 1.0-4.8 K/uL Monocytes # (Auto) 1.1 H 0.1-1.0 K/uL Eosinophils # (Auto) 0.59 0.00-0.70 K/uL Basophils # (Auto) 0.09 0.00-0.20 K/uL Absolute Immature Granulocyte (auto 0.03 0-1 K/uL Nucleated Red Blood Cells 0.0 0.0-0.19 % Chemistry Labs: Test 06/20/25 16:51 06/20/25 04:19 Range/Units Whole Blood Glucose 241 H 70-110 MG/DL Sodium Level 138 136-145 mmol/L Potassium Level 4.1 3.5-5.1 mmol/L Chloride Level 105 101-111 mmol/L Carbon Dioxide Level 28 21-32 mmol/L Blood Urea Nitrogen 20 H 7-18 mg/dL Creatinine 1.4 H 0.5-1.3 mg/dL Glomerular Filtration Rate Calc 51 >90 mL/min Random Glucose 145 H 70-105 mg/dL Total Calcium 8.4 L 8.5-10.1 mg/dL DIAGNOSTICS / RADIOLOGY RESULTS: [[facility] [address] [place] [address] IMAGING REPORT Signed PATIENT: SHELBY MONTES MR#: [id number] : 1945 SEX: M AGE: 79 LOCATION: [facility] ORDER 09 STATUS: ADM IN REPORT#: [id number] SERVICE 0903 REASON: CVA ORDERING PHYSICIAN: NOAH IBARRA MD PROCEDURE: CAROTID WO - MRA CAROTIDS WO Preface MRA Carotid arteries TECHNIQUE: 3 - SAG 2D PC LOC - TR: 33.0 - TE: 6.0 - ET: 1.0 - Thk: 60.0 4 - SAG 2D PC LOC - TR: 33.0 - TE: 6.0 - ET: 1.0 - Thk: 60.0 5 - 3D TOF 6 SLAB - TR: 18.0 - TE: 2.7 - ET: 1.0 - Thk: 3.0 300 - COL:SAG 2D PC LOC - TR: 33.0 - TE: 6.0 - ET: 1.0 - Thk: 60.0 400 - COL:SAG 2D PC LOC - TR: 33.0 - TE: 6.0 - ET: 1.0 - Thk: 60.0 500 - COL:3D TOF 6 SLAB - TR: 18.0 - TE: 2.7 - ET: 1.0 - Thk: 3.0 501 - PJN:3D TOF 6 SLAB - TR: 18.0 - TE: 2.7 - ET: 1.0 - Thk: 3.0 502 - BILAT ROT - TR: 18.0 - TE: 2.7 - ET: 1.0 - Thk: 3.0 503 - R ROT - TR: 18.0 - TE: 2.7 - ET: 1.0 - Thk: 3.0 504 - L ROT - TR: 18.0 - TE: 2.7 - ET: 1.0 - Thk: 3.0 Contrast: None. Reformations: None. Findings: Aortic Arch The aortic arch is normal in calibers and contours. There is no evidence of aneurysm or stenosis. The arch vessel orifices are Widely patent. Innominate system The innominate artery is widely patent, without irregularity or stenosis. The origin of the right common carotid artery is widely patent, without stenosis. The right common carotid artery is normal along its entire length, without evidence of narrowing. Right common carotid system The right carotid bifurcation is widely patent, without stenosis. The right internal carotid artery is normal in calibers and contours to the skull base. The right external carotid artery and its branches are normal in calibers and contours. Right subclavian system The right subclavian artery is normal in calibers and contours. The right vertebral artery is patent, without evidence of stenosis. Left common carotid system The left carotid bifurcation is widely patent, without stenosis. The left internal carotid artery is normal in calibers and contours to the Skull base. The left external carotid artery and its branches are normal in calibers and contours. Left subclavian system The left subclavian artery is normal in calibers and contours. The left vertebral artery is normal in calibers and contours as well. The basilar artery is normal in calibers and contours, without evidence of stenosis. IMPRESSION: Normal MRA examination of the carotid arteries /[place] DICTATED BY: CARMENCITA SOSA MD DATE: 06/19/251452 ELECTRONICALLY SIGNED BY: CARMENCITA SOSA MD DATE: 06/19/25 145 ] [place] [address] [place], [place] [id number] IMAGING REPORT Signed PATIENT: SHELBY MONTES MR#: [id number] : 1945 SEX: M AGE: 79 LOCATION: [facility] ORDER 0 STATUS: ADM IN REPORT#: [id number] SERVICE 4 REASON: stroke ORDERING PHYSICIAN: NOAH IBARRA MD PROCEDURE: COW - MRA COW/BRAIN-[place] OF SCHULTE EXAM: MR Angiography Head without Intravenous Contrast. CLINICAL HISTORY: Stroke. TECHNIQUE: Magnetic resonance angiography images of the head without intravenous contrast. Three-dimensional MIP reformations performed. CONTRAST: Without. COMPARISON: CT Head 06/17/2025. FINDINGS: INTERNAL CAROTID ARTERIES: No significant stenosis. No aneurysm or AVM. ANTERIOR CEREBRAL ARTERIES: No significant stenosis. No aneurysm or AVM. MIDDLE CEREBRAL ARTERIES: No significant stenosis. No aneurysm or AVM. 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 BASILAR ARTERY: No significant stenosis. No aneurysm or AVM. VERTEBRAL ARTERIES: No significant stenosis. No aneurysm or AVM. There is a subacute hemorrhagic infarct in the left occipital lobe. Please see prior CT brain from 06/17/2025. IMPRESSION: 1. 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 2. 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 /[place] DICTATED BY: CARMENCITA SOSA MD DATE: 06/19/25 150 ELECTRONICALLY SIGNED BY: CARMENCITA SOSA MD DATE: 06/19/25 1504 PLAN NEURO: Minimize central acting medications as possible. Maintain fall precautions, adequate lighting during the day MRA of neck and brain PULMONARY: Supplemental 02 as needed. Maintain aspiration precautions at all times CARDIOVASCULAR: Follow hemodynamics. Vital signs per facility protocol GI & NUTRITION: Continue with nutritional support. Continue stool softeners and laxatives as needed. KIDNEYS & ELECTROLYTES: Strict monitoring of intake, output and overall fluid balance. Avoid nephrotoxic medications to the extent possible. Medications to be dosed according to renal function. Monitor electrolytes and replace as needed ENDOCRINE: Maintain blood glucose between 100-180 at all times. Hypoglycemia protocol in place INFECTIOUS DISEASE: Trend temperature, WBC and procalcitonin level Follow cultures, deescalate antibiotics as soon as possible. Panculture if new onset fever ONCOLOGY/HEMATOLOGY/COAGULATION: Monitor for s/s of bleeding Monitor hemoglobin, coagulation studies as needed SKIN: Pressure ulcer prevention per facility protocol Specialty mattress ORTHO/REHAB: Continue PT/OT Prophylaxis: Continue GI and DVT prophylaxis Code Status: Full Resuscitation Disposition: TBD Other: ATTESTATION BY PHYSICIAN I have evaluated the patient chart, medical records, and spoke with appropriate staff. I reviewed the documentation, medical decision making, and treatment plan as noted by the mid-level provider above. I agree with the findings and plan of care. Alvino Hoffman MD, NELLY J [facility] Jun 20, 2025 19:26
--- NOTE | 2025-06-20 22:58 | PN ---
PROGRESS NOTE Date of Service: Jun 20, 2025 Time of Service: 22:53 SUBJECTIVE: Pt stable no new neurological symptoms. No new complaints Continues having right sided vision loss. REVIEW OF SYSTEMS CONSTITUTIONAL: Denies fever, chills, or fatigue. HEAD/FACE: No signs of trauma. EENT: Positive for vision loss on the right side of visual field, blurry vision on right side. RESPIRATORY: Denies shortness of breath, cough, wheezing CARDIOVASCULAR: Denies chest pain, palpitation, syncope GASTROINTESTINAL/ABDOMINAL: Denies abdominal pain, constipation, diarrhea, nausea or vomiting GENITOURINARY: Denies dysuria or hematuria. MUSCULOSKELETAL: Denies joint pain, tenderness, or trauma. INTEGUMENTARY: Denies rash or itchiness NEUROLOGICAL/PSYCH: Negative for headaches. PHYSICAL EXAM EYES: Anicteric. Pupils equal and reactive. HENT: No oral thrush seen, moist Oral mucosa NECK: Supple, no JVD or thyromegaly. LUNGS: Good air entry. No rales, no rhonchi. CARDIOVASCULAR: S1, S2 regular. No murmur heard. ABDOMEN: Soft, non tender, bowel sounds present, no organomegaly CENTRAL NERVOUS SYSTEM: vision loss right side SKIN: No rashes, no swelling. LYMPHATICS: No peripheral lymphadenopathy MUSCULOSKELETAL: No joint swelling, erythema or tenderness. EXTREMITIES: No cyanosis or clubbing BACK: No deformity, no pressure ulcer. GENITOURINARY: No dysuria or hematuria Vital Signs (last 8hr) Date Time Temp Pulse Resp B/P (MAP) Pulse Ox O2 Delivery O2 Flow Rate FiO2 06/20/25 16:00 97.9 65 20 120/75 98 Room Air LABS: Laboratory: Test 06/20/25 16:51 06/20/25 04:19 Range/Units Whole Blood Glucose 241 H 70-110 MG/DL White Blood Count 10.4 4.8-10.8 K/uL Red Blood Count 4.84 4.50-6.20 MIL/uL Hemoglobin 13.9 L 14.0-18.0 g/dL Hematocrit 43.0 42-54 % Mean Corpuscular Volume 88.8 79-99 fL Mean Corpuscular Hemoglobin 28.7 27.0-33.0 pg Mean Corpuscular Hemoglobin Concent 32.3 32.0-36.0 g/dL Red Cell Distribution Width 14.9 11.0-15.5 % Platelet Count 222 130-400 K/uL Mean Platelet Volume 9.6 7.5-10.5 fL Immature Granulocyte % (Auto) 0.3 0-1 % Neutrophils (%) (Auto) 67.5 40.0-77.0 % Lymphocytes (%) (Auto) 14.8 L 21.0-51.0 % Monocytes (%) (Auto) 10.8 3.0-13.0 % Eosinophils (%) (Auto) 5.7 0.0-8.0 % Basophils (%) (Auto) 0.9 0.0-5.0 % Neutrophils # (Auto) 7.0 1.8-7.7 K/uL Lymphocytes # (Auto) 1.5 1.0-4.8 K/uL Monocytes # (Auto) 1.1 H 0.1-1.0 K/uL Eosinophils # (Auto) 0.59 0.00-0.70 K/uL Basophils # (Auto) 0.09 0.00-0.20 K/uL Absolute Immature Granulocyte (auto 0.03 0-1 K/uL Nucleated Red Blood Cells 0.0 0.0-0.19 % Sodium Level 138 136-145 mmol/L Potassium Level 4.1 3.5-5.1 mmol/L Chloride Level 105 101-111 mmol/L Carbon Dioxide Level 28 21-32 mmol/L Blood Urea Nitrogen 20 H 7-18 mg/dL Creatinine 1.4 H 0.5-1.3 mg/dL Glomerular Filtration Rate Calc 51 >90 mL/min Random Glucose 145 H 70-105 mg/dL Total Calcium 8.4 L 8.5-10.1 mg/dL DIAGNOSTICS / RADIOLOGY: MRI brain left occipital ischemic stroke w/ hemorrhage ASSESSMENT / PLAN: Mr. Taveras is a patient with a history of diabetes, neuropathy, hypertension, and dyslipidemia presenting with right-sided vision loss that started approximately one week ago. Acute ischemic stroke with hemorrhagic transformation Assessment: Mr. Taveras experienced sudden onset of right-sided vision loss approximately one week ago. Initial ophthalmologic evaluation at the [facility] suggested a stroke, prompting referral to the hospital. Imaging studies (CT and MRI) reveal an ischemic stroke in the posterior left hemisphere that has undergone hemorrhagic transformation. The location and nature of the stroke are consistent with the patient's visual field deficits. Risk factors for stroke include the patient's history of diabetes, hypertension, dyslipidemia, and obesity. The stroke is believed to be embolic in origin, with possible sources including atherosclerotic plaques in the posterior cerebral circulation or a cardiac source. Plan: - Avoid anticoagulation or antiplatelet therapy at this time. 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 Taveras has multiple cardiovascular risk factors, including diabetes, hypertension, dyslipidemia, and obesity. These conditions likely contributed to the development of his stroke. Recent echocardiogram shows evidence of cardiac dysfunction with a mildly dilated left ventricle and reduced ejection fraction (45-50%), which may increase the risk of cardioembolic events. Plan: - Continue current management of diabetes, hypertension, and dyslipidemia - Emphasize importance of risk factor modification and medication adherence - Monitor renal function (most recent creatinine 1.3, GFR 56) Thank you for your consultation. I will sign off NOAH IBARRA MD Jun 20, 2025 22:58
== END 2025-06-20 17:50 | disposition home or self-care (01) | DRG 65 ==
LOC: EDH 15:27 → EDHIP 18:20 → 2CH 06-18 01:04 → 2DH 06-19 11:30
PROVIDERS: ADMIT Internal Medicine; ATTEND Internal Medicine
DX: I63.432 Cerebral infarction due to embolism of left posterior cerebral artery (principal); N30.00 Acute cystitis without hematuria; E11.22 Type 2 diabetes mellitus with diabetic chronic kidney disease; E78.00 Pure hypercholesterolemia, unspecified; H54.61 Unqualified visual loss, right eye, normal vision left eye; I12.9 Hypertensive chronic kidney disease with stage 1 through stage 4 chronic kidney disease, or unspecified chronic kidney disease; N18.32 Chronic kidney disease, stage 3b; E11.42 Type 2 diabetes mellitus with diabetic polyneuropathy; E11.65 Type 2 diabetes mellitus with hyperglycemia; E66.9 Obesity, unspecified; F40.240 Claustrophobia; I35.0 Nonrheumatic aortic (valve) stenosis; B96.20 Unspecified Escherichia coli [E. coli] as the cause of diseases classified elsewhere; R29.701 NIHSS score 1; N40.0 Benign prostatic hyperplasia without lower urinary tract symptoms; Z79.82 Long term (current) use of aspirin; Z86.73 Personal history of transient ischemic attack (TIA), and cerebral infarction without residual deficits; Z90.01 Acquired absence of eye; Z51.5 Encounter for palliative care; Z79.84 Long term (current) use of oral hypoglycemic drugs; Z79.899 Other long term (current) drug therapy; Z79.85 Long-term (current) use of injectable non-insulin antidiabetic drugs; Z68.29 Body mass index [BMI] 29.0-29.9, adult
CPT/HCPCS: 36415; 70450; 70544; 70547; 70551; 80048; 81001; 82550; 82948; 83036; 83721; 83735; 84100; 84484; 85025; 85610; 85730; 86850; 86900; 86901; 87086; 87186; 92522; 92610; 93005; 93306; 93308; 93880; 99291; G0378; J0690; J0696; J1200; J1815; J1953; J2470; Q9956